=== PATIENT | male | born 1965 | race American Indian/Alaskan Native ===

== ENCOUNTER 2017-04-22 11:56 | Inpatient (IN) | payer OTHER ==
[2017-04-22 14:15] LABS: Bilirubin,Urine NEG (Negative); Blood,Urine SM (Negative); Color,Urine Yellow (Yellow); Mucus,Urine FEW /HPF; Nitrite,Urine NEG (Negative); Urobilinogen,Urine < 2.0 mg/dL (<2.0)
[2017-04-22] MEDS ORDERED: NACL 0.9% 1000 ML 1,000 ML IV ONE (15:31)
[2017-04-22] MEDS ORDERED: TORADOL IV ONE (15:31)
[2017-04-22] MEDS ORDERED: ZOFRAN IV ONE (15:31)
--- NOTE | 2017-04-22 15:31 | Emergency Department Report ---
Blank Doc - Documentation Documentation: Patient is a 52-year-old F Cam[place] male whose presenting with abdominal discomfort. Patient states that for the past week he has not had a bowel movement he has had several episodes of nausea and vomiting when he drinks fluids he feels bloated. Patient states he is not passing flatus. Patient had a 50 pound weight loss over the past 2 months and also has not ate or drank in several days. Patient is feeling weak and fatigued. Patient is deemed ill enough potentially that he needs to be moved to the main acute side of the ER for further workup. We will start a workup by placing an IV on the patient will also be doing laboratory studies as well
[2017-04-22 16:24] LABS: Basophils # (Auto) 0.1 K/mm3 (0.0-0.1); Basophils % (Auto) 0.6 % (0.0-1.8); Eosinophils # (Auto) 0.1 K/mm3 (0.0-0.4); Eosinophils % (Auto) 0.6 % (0.0-4.3); Hematocrit 38.4 % (35.5-45.6); Hemoglobin 13.1 gm/dl (11.8-15.2); Lymphocytes # (Auto) 1.6 K/mm3 (1.2-5.4); Lymphocytes % (Auto) 16.8 % (13.4-35.0); Mean Corpuscular HGB Conc 34 % (32-34); Mean Corpuscular Hemoglobin 32 pg (28-32); Mean Corpuscular Volume 94 fl (84-94); Monocytes # (Auto) 0.9 K/mm3 (0.0-0.8); Platelet Count 368 K/mm3 (140-440); Red Cell Distribution Width 12.9 % (13.2-15.2)
[2017-04-22 16:32] LABS: BUN/Creatinine Ratio 13; Blood Urea Nitrogen 16 mg/dL (9-20); Calcium 9.5 mg/dL (8.4-10.2); Hemolysis Index 2; Lipase 10 units/L (13-60)
--- NOTE | 2017-04-22 17:11 | Emergency Department Report ---
ED General Adult HPI - General Chief complaint: Abdominal Pain Stated complaint: NAUSEA Time Seen by Provider: 04/22/17 15:16 Source: patient Mode of arrival: Ambulatory Limitations: No Limitations - History of Present Illness Initial comments: Patient is a 52-year-old male past medical history umbilical hernia who presents with abdominal pain meds been going on for the last couple days. Patient states the bone pains a 6 out of 10 is an achy type pain nothing makes it better or worse. Patient also has some nausea with this abdominal pain. He states that he's lost 50 pounds in the last month it is been hard for him to take solids and liquids. Pt has not been able to pass flatus. Severity scale (0 -10): 6 - Related Data Previous Rx's Medication Instructions Recorded Last Taken Type Dicyclomine [Bentyl] 20 mg PO QID #20 tablet 04/22/17 Unknown Rx Promethazine [Phenergan TAB] 25 mg PO Q6HR PRN #15 tab 04/22/17 Unknown Rx traMADol [Ultram 50 MG tab] 50 mg PO Q6HR PRN #12 tablet 04/22/17 Unknown Rx Allergies Allergy/AdvReac Type Severity Reaction Status Date / Time No Known Allergies Allergy Verified 04/22/17 12:39 ED Review of Systems ROS: Stated complaint: NAUSEA Other details as noted in HPI Constitutional: weakness. denies: chills, fever Eyes: denies: eye pain, eye discharge, vision change ENT: denies: ear pain, throat pain Respiratory: denies: cough, shortness of breath, wheezing Cardiovascular: denies: chest pain, palpitations Endocrine: no symptoms reported Gastrointestinal: abdominal pain, nausea. denies: diarrhea Genitourinary: denies: urgency, dysuria Musculoskeletal: denies: back pain, joint swelling, arthralgia Skin: denies: rash, lesions Neurological: denies: headache, weakness, paresthesias Psychiatric: denies: anxiety, depression Hematological/Lymphatic: denies: easy bleeding, easy bruising ED Past Medical Hx - Past Medical History Previous Medical History?: Yes Additional medical history: irritable bowel - Surgical History Past Surgical History?: No - Social History Smoking Status: Current Every Day Smoker Substance Use Type: None - Medications Home Medications: Home Medications Medication Instructions Recorded Confirmed Last Taken Type Dicyclomine [Bentyl] 20 mg PO QID #20 tablet 04/22/17 Unknown Rx Promethazine [Phenergan TAB] 25 mg PO Q6HR PRN #15 tab 04/22/17 Unknown Rx traMADol [Ultram 50 MG tab] 50 mg PO Q6HR PRN #12 tablet 04/22/17 Unknown Rx ED Physical Exam - General Limitations: No Limitations General appearance: alert, in no apparent distress - Head Head exam: Present: atraumatic, normocephalic - Eye Eye exam: Present: normal appearance - ENT ENT exam: Present: mucous membranes moist - Neck Neck exam: Present: normal inspection - Respiratory Respiratory exam: Present: normal lung sounds bilaterally. Absent: respiratory distress - Cardiovascular Cardiovascular Exam: Present: regular rate, normal rhythm. Absent: systolic murmur, diastolic murmur, rubs, gallop - GI/Abdominal GI/Abdominal exam: Present: soft, diminished bowel sounds, other (umbilical hernia ) - Rectal Rectal exam: Present: deferred - Extremities Exam Extremities exam: Present: normal inspection - Back Exam Back exam: Present: normal inspection - Neurological Exam Neurological exam: Present: alert, oriented X3 - Psychiatric Psychiatric exam: Present: normal affect, normal mood - Skin Skin exam: Present: warm, dry, intact, normal color. Absent: rash ED Course Vital Signs 04/22/17 04/22/17 12:40 16:00 Temperature 98.2 F Pulse Rate 90 Respiratory 16 18 Rate Blood Pressure 160/102 O2 Sat by Pulse 100 Oximetry ED Medical Decision Making - Lab Data Result diagrams: 04/22/17 15:51 04/22/17 15:51 Lab Results 04/22/17 04/22/17 04/22/17 Range/Units 13:36 15:51 15:51 WBC 9.6 (4.5-11.0) K/mm3 RBC 4.10 (3.65-5.03) M/mm3 Hgb 13.1 (11.8-15.2) gm/dl Hct 38.4 (35.5-45.6) % MCV 94 (84-94) fl MCH 32 (28-32) pg MCHC 34 (32-34) % RDW 12.9 L (13.2-15.2) % Plt Count 368 (140-440) K/mm3 Lymph % (Auto) 16.8 (13.4-35.0) % [place] % (Auto) 9.0 H (0.0-7.3) % Eos % (Auto) 0.6 (0.0-4.3) % Baso % (Auto) 0.6 (0.0-1.8) % Lymph # 1.6 (1.2-5.4) K/mm3 [place] # 0.9 H (0.0-0.8) K/mm3 Eos # 0.1 (0.0-0.4) K/mm3 Baso # 0.1 (0.0-0.1) K/mm3 Seg Neutrophils % 73.0 H (40.0-70.0) % Seg Neutrophils # 7.0 (1.8-7.7) K/mm3 Sodium 138 (137-145) mmol/L Potassium 4.7 (3.6-5.0) mmol/L Chloride 93.8 L (98-107) mmol/L Carbon Dioxide 31 H (22-30) mmol/L Anion Gap 18 mmol/L BUN 16 (9-20) mg/dL Creatinine 1.2 (0.8-1.5) mg/dL Estimated GFR > 60 ml/min BUN/Creatinine Ratio 13 % Glucose 110 H (75-100) mg/dL Calcium 9.5 (8.4-10.2) mg/dL Amylase 52 (27-131) units/L Lipase 10 L (13-60) units/L Urine Color Yellow (Yellow) Urine Turbidity Clear (Clear) Urine pH 5.0 (5.0-7.0) Ur Specific [place] 1.027 (1.003-1.030) Urine Protein 100 mg/dl (Negative) mg/dL Urine Glucose (UA) Neg (Negative) mg/dL Urine Ketones 20 (Negative) mg/dL Urine Blood Sm (Negative) Urine Nitrite Neg (Negative) Urine Bilirubin Neg (Negative) Urine Urobilinogen < 2.0 (<2.0) mg/dL Ur Leukocyte Esterase Neg (Negative) Urine WBC (Auto) 2.0 (0.0-6.0) /HPF Urine RBC (Auto) 5.0 (0.0-6.0) /HPF Urine Mucus Few /HPF - Radiology Data Radiology results: pending - Medical Decision Making Cdx: Abdominal hernia ddx: Peritonitis, anemia, cancer I will get cbc, ct scan, cmp, inr. ptt, iv pain medication and IV fluids. Critical care attestation.: If time is entered above; I have spent that time in minutes in the direct care of this critically ill patient, excluding procedure time. ED Disposition Clinical Impression: Abdominal pain Qualifiers: Abdominal location: generalized Qualified Code(s): R10.84 - Generalized abdominal pain Nausea and vomiting Qualifiers: Vomiting type: unspecified Vomiting Intractability: non-intractable Qualified Code(s): R11.2 - Nausea with vomiting, unspecified Is pt being admited?: No Does the pt Need Aspirin: No Condition: Stable Prescriptions: Dicyclomine [Bentyl] 20 mg PO QID #20 tablet Promethazine [Phenergan TAB] 25 mg PO Q6HR PRN #15 tab PRN Reason: Nausea traMADol [Ultram 50 MG tab] 50 mg PO Q6HR PRN #12 tablet PRN Reason: Pain Referrals: PRIMARY CARE,MD [Primary Care Provider] - 3-5 Days
--- NOTE | 2017-04-22 21:40 | Cat Scan Report ---
FINAL REPORT PROCEDURE: CT ABDOMEN PELVIS W CON TECHNIQUE: Computerized axial tomography of the abdomen and pelvis was performed after the IV injection of iodinated nonionic contrast. HISTORY: Abdominal Pain COMPARISON: No prior studies are available for comparison. FINDINGS: Visualized lower thorax: No significant abnormality. Liver: Normal size and attenuation. There is an 8 millimeter low-density lesion in the right lobe of the liver which could be a cyst. Metastatic lesion not excluded. Spleen: There is a 13 millimeter hypodense lesion in the spleen which could be a cyst. Metastatic lesion not excluded.. Gallbladder and biliary system: Normal. Pancreas: Normal. Adrenals: Normal. Kidneys: Left kidney is unremarkable. There is severe hydronephrosis of the right kidney. There are no stones. Distal ureteral obstruction or stricture not excluded.. GI tract: There is thickening of the stomach antrum which could be due to gastritis. Mass not excluded. There is no bowel obstruction. There is thickening of the rectum and sigmoid and left colon which could be due to inflammation. Underlying mass not excluded.. Lymph nodes and mesentery: There are omental masses suspicious for metastatic implants.. Vasculature: Normal. Bladder: Normal. Reproductive organs: Normal. Peritoneum: There is a large amount of ascites. There is ill-defined mass in the pelvis measuring 8.5 x 10.5 centimeter is suspicious for metastatic implant.. Musculoskeletal structures: No significant abnormality. Other: None. IMPRESSION: Findings are highly suspicious for peritoneal carcinomatosis. Possible source of malignancy could be gastrointestinal. There is a large amount of ascites. There is no mechanical bowel obstruction. Liver and spleen lesions could also be metastatic in nature. There hydronephrosis of the right kidney. This could be due to distal ureteral stricture caused by extrinsic compression from pelvic mass.
--- NOTE | 2017-04-22 22:01 | Emergency Department Report ---
Blank Doc - Documentation Documentation: I was asked to follow up on the CT scan abdomen and pelvis by Dr. Saini. CT abdomen and pelvis reveals findings are highly suspicious for peritoneal carcinomatosis. This was discussed with the patient and family. Will admit the patient to the hospital FINAL REPORT PROCEDURE: CT ABDOMEN PELVIS W CON TECHNIQUE: Computerized axial tomography of the abdomen and pelvis was performed after the IV injection of iodinated nonionic contrast. HISTORY: Abdominal Pain COMPARISON: No prior studies are available for comparison. FINDINGS: Visualized lower thorax: No significant abnormality. Liver: Normal size and attenuation. There is an 8 millimeter low-density lesion in the right lobe of the liver which could be a cyst. Metastatic lesion not excluded. Spleen: There is a 13 millimeter hypodense lesion in the spleen which could be a cyst. Metastatic lesion not excluded.. Gallbladder and biliary system: Normal. Pancreas: Normal. Adrenals: Normal. Kidneys: Left kidney is unremarkable. There is severe hydronephrosis of the right kidney. There are no stones. Distal ureteral obstruction or stricture not excluded.. GI tract: There is thickening of the stomach antrum which could be due to gastritis. Mass not excluded. There is no bowel obstruction. There is thickening of the rectum and sigmoid and left colon which could be due to inflammation. Underlying mass not excluded.. Lymph nodes and mesentery: There are omental masses suspicious for metastatic implants.. Vasculature: Normal. Bladder: Normal. Reproductive organs: Normal. Peritoneum: There is a large amount of ascites. There is ill-defined mass in the pelvis measuring 8.5 x 10.5 centimeter is suspicious for metastatic implant.. Musculoskeletal structures: No significant abnormality. Other: None. IMPRESSION: Findings are highly suspicious for peritoneal carcinomatosis. Possible source of malignancy could be gastrointestinal. There is a large amount of ascites. There is no mechanical bowel obstruction. Liver and spleen lesions could also be metastatic in nature. There hydronephrosis of the right kidney. This could be due to distal ureteral stricture caused by extrinsic compression from pelvic mass. Transcribed By: CO Dictated By: MADISON HARP MD Electronically Authenticated By: MADISON HARP MD Signed Date/Time: 04/22/171735 DD/ 35 TD/TT: 04/22/171735 Hospitalist paged @ 22:00 (Dr. Frazier)
--- NOTE | 2017-04-23 01:31 | History and Physical Report ---
History of Present Illness Date of examination: 04/23/17 Date of admission: 04/22/17 22:03 Chief complaint: Abdominal pain History of present illness: 52-year-old -Malaysian male with no significant past medical history presented to the emergency department complaining of lower abdominal pain of one month duration. Pain is constant, dull, 7 out of 10 in intensity, with no radiation. Patient is also complaining of abdominal distention getting worse after eating and drinking. Patient is complaining of nausea and vomiting for the last 1 week. He is also complaining of acid reflex. Occasional diarrhea, no blood in it. Patient said she lost 55 pounds in 2 months. Denied fever, chills. Patient didn't see a doctor in many years. REVIEW OF SYSTEMS: GENERAL: no weight change, no fatigue, no fever HEAD: no head ache EYES: no blurry vision, no acute visual loss EARS: no hearing loss, no discharge, no earache NOSE: no stuffiness, no sneezing, no discharge MOUTH, THROAT AND NECK: no bleeding gums, no sore throat, no swollen neck CARDIAC: no palpitations, no dyspnea on exertion, no orthopnea, no PND, no edema , no chest pain RESPIRATORY: no shortness of breath, no wheeze, no cough, no sputum, no hemoptysis, no asthma GI: As stated in the HPI URINARY: no change in frequency, no urgency, no polyuria, no hematuria, no incontinence MUSCULOSKELETAL: no muscle weakness, no pain, no joint stiffness NEUROLOGIC: no loss of sensation/numbness, no tingling, no tremors, no weakness/ paralysis HEMATOLOGIC: no anemia, no easy bruising SKIN: no rashes ENDOCRINE: no heat/cold intolerance, no polyuria, no polydipsia, no thyroid problems, no diabetes PSYCHIATRIC: no anxiety, no depression, no suicidal ideations Past History Past Medical History: No medical history Past Surgical History: No surgical history Social history: smoking (smokes a pack of cigarettes over 2-3 days), full code. denies: alcohol abuse, prescription drug abuse, IV drug use Family history: no significant family history Medications and Allergies Allergies Allergy/AdvReac Type Severity Reaction Status Date / Time No Known Allergies Allergy Verified 04/22/17 12:39 Home Medications Medication Instructions Recorded Confirmed Last Taken Type Dicyclomine [Bentyl] 20 mg PO QID #20 tablet 04/22/17 Unknown Rx Promethazine [Phenergan TAB] 25 mg PO Q6HR PRN #15 tab 04/22/17 Unknown Rx traMADol [Ultram 50 MG tab] 50 mg PO Q6HR PRN #12 tablet 04/22/17 Unknown Rx Active Meds: Active Medications Influenza Virus Vaccine Quadrival (Fluarix Quad [id number](36 Mos+) 0.5 ml IM .ONCE ONE Stop: 04/23/17 12:01 Exam - Physical Exam Narrative exam: Not in cardiopulmonary distress. The patient appeared well nourished and normally developed. Vital signs as documented. Head exam is unremarkable. No scleral icterus . Neck is without jugular venous distension, thyromegaly, or carotid bruits. Lungs are clear to auscultation. Cardiac exam reveals regular rate and Rhythm. First and second heart sounds normal. No murmurs, rubs or gallops. Abdominal exam reveals distended abdomen, no guarding or rigidity. Extremities are nonedematous and both femoral and pedal pulses are normal. SKATESMAN: Alert and oriented 3. No focal weakness. - Constitutional Vitals: Temp Pulse Resp BP Pulse Ox 98.9 F 72 16 157/97 98 04/23/17 00:17 04/23/17 00:17 04/23/17 00:17 04/23/17 00:17 04/23/17 00:17 Results - Labs CBC & Chem 7: 04/22/17 15:51 04/22/17 15:51 Labs: Laboratory Last Values WBC 9.6 K/mm3 (4.5-11.0) 04/22/17 15:51 RBC 4.10 M/mm3 (3.65-5.03) 04/22/17 15:51 Hgb 13.1 gm/dl (11.8-15.2) 04/22/17 15:51 Hct 38.4 % (35.5-45.6) 04/22/17 15:51 MCV 94 fl (84-94) 04/22/17 15:51 MCH 32 pg (28-32) 04/22/17 15:51 MCHC 34 % (32-34) 04/22/17 15:51 RDW 12.9 % (13.2-15.2) L 04/22/17 15:51 Plt Count 368 K/mm3 (140-440) 04/22/17 15:51 Lymph % (Auto) 16.8 % (13.4-35.0) 04/22/17 15:51 [place] % (Auto) 9.0 % (0.0-7.3) H 04/22/17 15:51 Eos % (Auto) 0.6 % (0.0-4.3) 04/22/17 15:51 Baso % (Auto) 0.6 % (0.0-1.8) 04/22/17 15:51 Lymph # 1.6 K/mm3 (1.2-5.4) 04/22/17 15:51 [place] # 0.9 K/mm3 (0.0-0.8) H 04/22/17 15:51 Eos # 0.1 K/mm3 (0.0-0.4) 04/22/17 15:51 Baso # 0.1 K/mm3 (0.0-0.1) 04/22/17 15:51 Seg Neutrophils % 73.0 % (40.0-70.0) H 04/22/17 15:51 Seg Neutrophils # 7.0 K/mm3 (1.8-7.7) 04/22/17 15:51 Sodium 138 mmol/L (137-145) 04/22/17 15:51 Potassium 4.7 mmol/L (3.6-5.0) 04/22/17 15:51 Chloride 93.8 mmol/L (98-107) L 04/22/17 15:51 Carbon Dioxide 31 mmol/L (22-30) H 04/22/17 15:51 Anion Gap 18 mmol/L 04/22/17 15:51 BUN 16 mg/dL (9-20) 04/22/17 15:51 Creatinine 1.2 mg/dL (0.8-1.5) 04/22/17 15:51 Estimated GFR > 60 ml/min 04/22/17 15:51 BUN/Creatinine Ratio 13 % 04/22/17 15:51 Glucose 110 mg/dL (75-100) H 04/22/17 15:51 Calcium 9.5 mg/dL (8.4-10.2) 04/22/17 15:51 Amylase 52 units/L (27-131) 04/22/17 15:51 Lipase 10 units/L (13-60) L 04/22/17 15:51 Urine Color Yellow (Yellow) 04/22/17 13:36 Urine Turbidity Clear (Clear) 04/22/17 13:36 Urine pH 5.0 (5.0-7.0) 04/22/17 13:36 Ur Specific [place] 1.027 (1.003-1.030) 04/22/17 13:36 Urine Protein 100 mg/dl mg/dL (Negative) 04/22/17 13:36 Urine Glucose (UA) Neg mg/dL (Negative) 04/22/17 13:36 Urine Ketones 20 mg/dL (Negative) 04/22/17 13:36 Urine Blood Sm (Negative) 04/22/17 13:36 Urine Nitrite Neg (Negative) 04/22/17 13:36 Urine Bilirubin Neg (Negative) 04/22/17 13:36 Urine Urobilinogen < 2.0 mg/dL (<2.0) 04/22/17 13:36 Ur Leukocyte Esterase Neg (Negative) 04/22/17 13:36 Urine WBC (Auto) 2.0 /HPF (0.0-6.0) 04/22/17 13:36 Urine RBC (Auto) 5.0 /HPF (0.0-6.0) 04/22/17 13:36 Urine Mucus Few /HPF 04/22/17 13:36 - Imaging and Cardiology CT scan - abdomen: report reviewed Assessment and Plan Assessment and plan: GI malignancy Peritoneal carcinomatosis GERD Nausea and vomiting - GI consulted - oncology consult - IV fluids, IV pantoprazole, IV Zofran DVT prophylaxis Heparin Disposition - Admit to medical floor for further workup and management Advance Directives: Yes VTE prophylaxis?: Chemical Plan of care discussed with patient/family: Yes
[2017-04-23] MEDS: NACL 0.9% 1000 ML 1,000 ML IV SCH ×2 (03:47→16:31)
[2017-04-23] MEDS: PROTONIX IV SCH ×3 (03:47→21:10)
--- NOTE | 2017-04-23 08:25 | Event Note ---
Date: 04/23/17
[2017-04-23] MEDS: NORVASC PO SCH (10:06)
[2017-04-23 11:30] LABS: INR 1.01 (0.87-1.13)
[2017-04-23] MEDS ORDERED: Fluarix Quad 2017-2018(36 MOS+ IM ONE (12:00)
--- NOTE | 2017-04-23 12:50 | Consultation ---
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 Patient has a 5 month history of constipation. He has an approximately 2 month history of intermittent left sided pain as well as loss of appetite and early bloating. He has had poor by mouth intake over the last 2 months. He has lost 55 pounds over the last 2 months. He has also recently noticed heartburn with vomiting. He is a smoker and was smoking up half pack per day until approximately a week ago. He denies fevers chills sweats or shortness of breath. There's been no rectal bleeding. He does note a change in his bowel movements with some degree of constipation. He denies dysphagia. He does have early satiety. Patient's and parents are in the room. There is no family history of malignancy. Past History Past Medical History: No medical history Past Surgical History: No surgical history Social history: smoking (smokes a pack of cigarettes over 2-3 days), full code. denies: alcohol abuse, prescription drug abuse, IV drug use Family history: no significant family history Medications and Allergies Allergies Allergy/AdvReac Type Severity Reaction Status Date / Time No Known Allergies Allergy Verified 04/22/17 12:39 Home Medications Medication Instructions Recorded Confirmed Last Taken Type Dicyclomine [Bentyl] 20 mg PO QID #20 tablet 04/22/17 Unknown Rx Promethazine [Phenergan TAB] 25 mg PO Q6HR PRN #15 tab 04/22/17 Unknown Rx traMADol [Ultram 50 MG tab] 50 mg PO Q6HR PRN #12 tablet 04/22/17 Unknown Rx Active Meds: Active Medications Amlodipine Besylate (Norvasc) 5 mg PO QDAY [facility] Last Admin: 04/23/17 10:06 Dose: 5 mg Enoxaparin Sodium (Lovenox) 40 mg SUB-Q QDAY@2200 SHAYE Sodium Chloride (Nacl 0.9% 1000 Ml) 1,000 mls @ 75 mls/hr IV DIRECT SHAYE Last Admin: 04/23/17 03:47 Dose: 75 mls/hr Ondansetron HCl (Zofran) 4 mg IV Q8H PRN PRN Reason: N/V unrelieved by Reglan Pantoprazole Sodium (Protonix) 40 mg IV BID SHAYE Last Admin: 04/23/17 10:07 Dose: 40 mg Review of Systems All systems: negative Constitutional: other (as noted in HPI as noted in HPI) Exam - Constitutional Vitals: Temp Pulse Resp BP Pulse Ox 98.4 F 73 18 135/91 96 04/23/17 08:42 04/23/17 08:42 04/23/17 08:42 04/23/17 08:42 04/23/17 08:42 General appearance: Present: no acute distress - EENT Eyes: Present: PERRL, EOM intact ENT: hearing intact - Neck Neck: Present: supple, other (No adenopathy) - Respiratory Respiratory effort: normal - Cardiovascular Rhythm: regular Heart Sounds: Present: S1 & S2 - Abdominal General gastrointestinal: Present: soft, non-tender, normal bowel sounds, other (No masses palpable.) Results - Labs CBC & Chem 7: 04/22/17 15:51 04/22/17 15:51 Labs: Abnormal lab results 04/22/17 04/22/17 Range/Units 15:51 15:51 RDW 12.9 L (13.2-15.2) % [place] % (Auto) 9.0 H (0.0-7.3) % [place] # 0.9 H (0.0-0.8) K/mm3 Seg Neutrophils % 73.0 H (40.0-70.0) % Chloride 93.8 L (98-107) mmol/L Carbon Dioxide 31 H (22-30) mmol/L Glucose 110 H (75-100) mg/dL Lipase 10 L (13-60) units/L - Imaging and Cardiology CT scan - abdomen: report reviewed, other (Ascites, peritoneal carcinomatosis) Assessment and Plan #1. Peritoneal carcinomatosis/ascites Patient has findings consistent with malignant ascites. Etiology is unclear, but pancreatic or gastric etiologies are fairly common. He has GI symptoms with constipation that could be related to obstruction from peritoneal carcinomatosis or tomorrow primary process. He also has early satiety. CT also shows right hydro-ureter consistent with obstruction from the peritoneal carcinomatosis. We will check CEA, CA 199 level. We will proceed with an upper endoscopy to assess the thickened antral wall especially given his history of early satiety. I agree with the plans for paracentesis and cytology today. Also agree with plans for oncologic evaluation. I would defer colonoscopy for now until some of the other studies are available. Plans were discussed with patient and his family.
--- NOTE | 2017-04-23 15:20 | Ultrasound Report ---
Ultrasound guided paracentesis: Ascites. Imaging of the abdomen demonstrated a site of entrance in the right lower quadrant. The skin was marked, cleansed, and draped. 1% lidocaine used local anesthesia. Through a small skin neck a 5 Divehi UE catheter was successfully placed into the fluid collection. 120 cc of straw-colored fluid was removed for lab evaluation. A total of 1.5 L was removed. No complication.
--- NOTE | 2017-04-23 15:28 | Procedure Note ---
Date of procedure: 04/23/17 Pre-op diagnosis: ascites Post-op diagnosis: same Procedure: paracentesis Findings: straw colored fluid Anesthesia: local Surgeon: AGNIESZKA DUNN Estimated blood loss: none Pathology: list (120cc ascites) Specimen disposition: to lab Condition: stable Disposition: floor
--- NOTE | 2017-04-23 19:11 | Progress Note ---
Assessment and Plan - Carcinomatosis abdominis with ascites Paracentesis done today. Specimen sent for cytology. Follow-up with the results. - Peritoneal carcinomatosis GI consulted. CEA and CA-19-9 ordered Oncology consulted - Right ureteric obstruction from intra-abdominal malignancy Normal BUN, Creatinine. Urology consult - GERD PPI - Nausea and vomiting on antiemetic - Constipation Secondary to intraabdominal carcinomatosis commence on Mag citrate DVT prophylaxis Heparin Subjective Date of service: 04/23/17 Principal diagnosis: abdominal pain, ascites from mets Interval history: Has abdominal pain with constipation Objective - Exam Narrative Exam: Constitutional: Well-nourished well-developed. In no distress Head: Normocephalic atraumatic Eyes: Pupils are equal round and reactive to light Nose: No enlarged turbinates, no septal deviation. Mouth: Moist mucous membranes. Neck: Supple no thyromegaly. No bruit. No JVD Heart: Regular rate and rhythm, S1-S2 abnormal. No rubs murmurs or gallop Lungs: Clear to auscultation bilaterally no rales or rhonchi Abdomen: Soft, ascites. Bowel sound are present. Extremities: No edema no cyanosis and no clubbing. Neuro: Alert oriented Oriented x3. No focal sensory or motor deficit. Skin: No rashes no hyperemic spots Psychiatry: Euthymic. Calm. - Constitutional Vitals: Vital Signs - 12hr 04/23/17 04/23/17 08:42 16:47 Temperature 98.4 F 99.1 F Pulse Rate 73 85 Respiratory 18 18 Rate Blood Pressure 135/91 139/86 O2 Sat by Pulse 96 97 Oximetry - Labs CBC & Chem 7: 04/22/17 15:51 04/22/17 15:51
[2017-04-23] MEDS: DILAUDID IM PRN (20:52)
[2017-04-23] MEDS: ZOFRAN IV PRN (20:52)
[2017-04-23] MEDS: LOVENOX SUB-Q SCH (21:10)
[2017-04-24] MEDS: DILAUDID IM PRN ×3 (02:30→22:52)
[2017-04-24] MEDS: NACL 0.9% 1000 ML 1,000 ML IV SCH ×3 (04:49→20:47)
[2017-04-24 05:44] LABS: Basophils % (Auto) 0.2 % (0.0-1.8); Eosinophils # (Auto) 0.2 K/mm3 (0.0-0.4); Eosinophils % (Auto) 3.1 % (0.0-4.3); Hemoglobin 11.4 gm/dl (11.8-15.2); Lymphocytes % (Auto) 28.9 % (13.4-35.0); Mean Corpuscular HGB Conc 34 % (32-34); Mean Corpuscular Hemoglobin 31 pg (28-32); Mean Corpuscular Volume 93 fl (84-94); Monocytes # (Auto) 0.8 K/mm3 (0.0-0.8); Monocytes % (Auto) 11.3 % (0.0-7.3); Platelet Count 338 K/mm3 (140-440); Red Blood Count 3.64 M/mm3 (3.65-5.03); Red Cell Distribution Width 12.8 % (13.2-15.2)
[2017-04-24 06:12] LABS: Alanine Aminotransferase 10 units/L (7-56); Albumin 2.7 g/dL (3.9-5); BUN/Creatinine Ratio 10; Blood Urea Nitrogen 14 mg/dL (9-20); Calcium 8.5 mg/dL (8.4-10.2); Hemolysis Index 3
[2017-04-24] MEDS ORDERED: NACL 0.9% 1000 ML 1,000 ML ONE (08:01)
--- NOTE | 2017-04-24 08:30 | Anesthesia Consultation ---
Anesthesia Consult and Med Hx Date of service: 04/24/17 - Airway Anesthetic Teeth Evaluation: Good ROM Head & Neck: Adequate Mental/Hyoid Distance: Adequate Mallampati Class: Class I Intubation Access Assessment: Good - Pulmonary Exam CTA: Yes - Cardiac Exam Cardiac Exam: RRR - Pre-Operative Health Status ASA Pre-Surgery Classification: ASA2 Proposed Anesthetic Plan: MAC - Pulmonary Hx Smoking: Yes Hx Asthma: No COPD: No Hx Pneumonia: No - Cardiovascular System Hx Hypertension: Yes (just dx in hospital) - Endocrine Hx End Stage Renal Disease: No
--- NOTE | 2017-04-24 08:30 | Anesthesia Day of Surgery ---
Anesthesia Day of Surgery - Day of Surgery Patient Examined: Yes Patient H&P Reviewed: Yes Patient is NPO: Yes
[2017-04-24] MEDS ORDERED: DIPRIVAN 10 MG/ML IV ONE ×2 (08:44)
[2017-04-24] MEDS ORDERED: WATER FOR IRRIG STERILE IR ONE (08:58)
--- NOTE | 2017-04-24 09:52 | Post Operative Note ---
Pre-op diagnosis: Abnormal CT Post-op diagnosis: other (gastritis, esophagitis, gastroparesis) Findings: 1. Moderate amount of food in the stomach consistent with gastroparesis (from tumor, presumably); no pyloric obstruction 2. Normal duodenum 3. Moderate erythema and edema in the gastric cardia; no mass seen, but cold biopsies taken 4. LA B erosive esophagitis, likely from gastroparesis/vomiting Procedure: EGD with cold biopsy Anesthesia: MAC Surgeon: GARRY VITALE Estimated blood loss: minimal Pathology: list (1. Gastric cardia) Condition: stable Disposition: floor (Recs: 1. Full liquid diet, advance as tolerated. 2. F/U pathology. 3. Will await biopsy results of stomach and peritoneal fluid; needs a PET scan as well. 4. Patient would be unable to take a prep at present due to gastroparesis, but if PET localizes to colon, then may need lower endoscopy. 5. Protonix daily therapy.)
--- NOTE | 2017-04-24 10:06 | Operative Report ---
PROCEDURE PERFORMED: Esophagogastroduodenoscopy with cold biopsy. PREOPERATIVE DIAGNOSES: Abnormal CT scan, with presumed metastatic cancer of unknown origin. POSTOPERATIVE DIAGNOSES: Gastritis, esophagitis and gastroparesis. ENDOSCOPIST: Jason Escobedo M.D. INSTRUMENT: [employer] video endoscope. MEDICATIONS: MAC anesthesia by Anesthesia Services. COMPLICATIONS: No apparent complications. ESTIMATED BLOOD LOSS: Minimal. SPECIMENS: Gastric cardia. IMPLANTS: None. ASSISTANTS: None. CONDITION AT COMPLETION: Stable. TECHNIQUE: The patient was informed of the risks and benefits of the procedure. He signed the informed consent to proceed. He was placed in the left lateral decubitus position. The above sedative medications were given. His vital signs remained stable throughout the procedure. The instrument was advanced from the mouth to the second portion of the duodenum under direct visualization. At that point, the bowel was insufflated and the endoscope was slowly withdrawn. FINDINGS: 1. There was a moderate amount of food in the stomach consistent with gastroparesis, presumably from his underlying peritoneal metastatic tumor; no evidence was seen of obstruction at the pylorus. 2. Normal duodenum. 3. Moderate erythema and edema in the gastric cardia; no mass was seen, but cold biopsies were taken. 4. LA grade B erosive esophagitis, likely from his gastroparesis and chronic vomiting. RECOMMENDATIONS: 1. Full liquid diet and advance as tolerated. 2. Follow up on pathology. 3. We will await biopsy results of the stomach and the peritoneal fluid; the patient needs PET scan as well. 4. The patient will be unable to take a preparation for colonoscopy due to his gastroparesis, but if the PET scan localizes to the colon, then he may need a lower endoscopy. 5. Protonix daily therapy. JOB# [id number] GAYLA/LAURA
--- NOTE | 2017-04-24 12:55 | Post Anesthesia Evaluation ---
- Post Anesthesia Evaluation Patient Participated: Yes Airway Patent: Yes Stable Respiratory Function: Yes Nausea/Vomiting: No Temp > 96.8F: Yes Pain Manageable: Yes Adequeate Hydration: Yes Anesthesia Complications: No
[2017-04-24] MEDS: NORVASC PO SCH (13:01)
[2017-04-24] MEDS: PROTONIX PO SCH (13:01)
[2017-04-24] MEDS: ZOFRAN IV PRN ×2 (13:01→22:52)
--- NOTE | 2017-04-24 13:26 | Hem/Onc Consultation ---
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 Patient has a 5 month history of constipation. He has an approximately 2 month history of intermittent left sided pain as well as loss of appetite and early bloating. He has had poor by mouth intake over the last 2 months. He has lost 55 pounds over the last 2 months. He has also recently noticed heartburn with vomiting. He is a smoker and was smoking up half pack per day until approximately a week ago. He denies fevers chills sweats or shortness of breath. There's been no rectal bleeding. He does note a change in his bowel movements with some degree of constipation. He denies dysphagia. He does have early satiety. He shouldn't underwent paracentesis yesterday Past History Past Medical History: No medical history Past Surgical History: No surgical history Social history: smoking (smokes a pack of cigarettes over 2-3 days), full code. denies: alcohol abuse, prescription drug abuse, IV drug use Family history: no significant family history Medications and Allergies Allergies Allergy/AdvReac Type Severity Reaction Status Date / Time No Known Allergies Allergy Verified 04/22/17 12:39 Home Medications Medication Instructions Recorded Confirmed Last Taken Type Dicyclomine [Bentyl] 20 mg PO QID #20 tablet 04/22/17 Unknown Rx Promethazine [Phenergan TAB] 25 mg PO Q6HR PRN #15 tab 04/22/17 Unknown Rx traMADol [Ultram 50 MG tab] 50 mg PO Q6HR PRN #12 tablet 04/22/17 Unknown Rx Active Meds: Active Medications Amlodipine Besylate (Norvasc) 5 mg PO QDAY [facility] Last Admin: 04/24/17 13:01 Dose: 5 mg Enoxaparin Sodium (Lovenox) 40 mg SUB-Q QDAY@2200 [facility] Last Admin: 04/23/17 21:10 Dose: 40 mg Hydromorphone HCl (Dilaudid) 1 mg IM Q3H PRN PRN Reason: Pain , Severe (7-10) Last Admin: 04/24/17 11:31 Dose: 1 mg Sodium Chloride (Nacl 0.9% 1000 Ml) 1,000 mls @ 75 mls/hr IV DIRECT [facility] Last Admin: 04/24/17 08:48 Dose: 75 mls/hr Ondansetron HCl (Zofran) 4 mg IV Q8H PRN PRN Reason: N/V unrelieved by Alia Last Admin: 04/24/17 13:01 Dose: 4 mg Pantoprazole Sodium (Protonix) 40 mg PO QDAY [facility] Last Admin: 04/24/17 13:01 Dose: 40 mg Exam - Constitutional Vitals: Last Vital Signs Temp 98.0 F 04/24/17 09:47 Pulse 72 04/24/17 10:02 Resp 12 04/24/17 10:02 BP 122/87 04/24/17 10:02 Pulse Ox 99 04/24/17 10:02 General appearance: no acute distress Performance status: 2- selfcare, ambulatory - Neck Neck: supple - Respiratory Respiratory effort: Positive: normal Respiratory: bilateral: CTA - Cardiovascular Rhythm: regular Extremities: No edema - Gastrointestinal General gastrointestinal: Present: soft (tenderness mostly in the left side of the abdomen) Results - Labs lab Results: Laboratory Results - last 24 hr 04/24/17 04/24/17 04:54 04:54 WBC 6.8 RBC 3.64 L Hgb 11.4 L Hct 34.0 L MCV 93 MCH 31 MCHC 34 RDW 12.8 L Plt Count 338 Lymph % (Auto) 28.9 [place] % (Auto) 11.3 H Eos % (Auto) 3.1 Baso % (Auto) 0.2 Lymph # 2.0 [place] # 0.8 Eos # 0.2 Baso # 0.0 Seg Neutrophils % 56.5 Seg Neutrophils # 3.8 Sodium 138 Potassium 4.3 Chloride 98.2 Carbon Dioxide 31 H Anion Gap 13 BUN 14 Creatinine 1.4 Estimated GFR > 60 BUN/Creatinine Ratio 10 Glucose 104 H Calcium 8.5 Total Bilirubin 0.40 AST 23 ALT 10 Alkaline Phosphatase 57 Total Protein 5.6 L Albumin 2.7 L Albumin/Globulin Ratio 0.9 Assessment and Plan Awaiting cytology on the ascitic fluid. Agree with GI evaluation. Tumor markers ordered results pending. Will follow
--- NOTE | 2017-04-24 16:28 | Progress Note ---
Assessment and Plan Total Time Spent with Patient (Minutes): 24 - Patient Problems (1) Carcinomatosis Current Visit: Yes Status: Acute Plan to address problem: Adenocarcinomatosis. Awaiting cytology and tumor markers. (2) Abdominal pain Current Visit: Yes Status: Acute Qualifiers: Abdominal location: generalized Qualified Code(s): R10.84 - Generalized abdominal pain Plan to address problem: Abdominal pain much better controlled secondary to peritoneal carcinomatosis as well. Smoking cessation. (3) Nausea and vomiting Current Visit: Yes Status: Acute Qualifiers: Vomiting type: unspecified Vomiting Intractability: non-intractable Qualified Code(s): R11.2 - Nausea with vomiting, unspecified Plan to address problem: Nausea and vomiting has resolved patient tolerating by mouth. (4) DVT prophylaxis Current Visit: Yes Status: Acute History Interval history: Patient today states he feels better. No acute findings. Hospital course on remarkable over p.m. Patient eating better. Able to tolerate some foods. Status post EGD with cold biopsy yesterday. Paracentesis complete. Hospitalist Physical - Constitutional Vitals: Temp Pulse Resp BP Pulse Ox 98.0 F 72 12 122/87 99 04/24/17 09:47 04/24/17 10:02 04/24/17 10:02 04/24/17 10:02 04/24/17 10:02 General appearance: Present: no acute distress - EENT Eyes: Present: PERRL, EOM intact, irregular pupil ENT: hearing intact, clear oral mucosa, dentition normal - Neck Neck: Present: supple, normal ROM - Respiratory Respiratory: bilateral: CTA - Cardiovascular Rhythm: irregularly irregular - Extremities Extremities: no ischemia, pulses intact, pulses symmetrical, No edema, normal temperature, normal color Peripheral Pulses: within normal limits - Abdominal General gastrointestinal: soft, tender, non-distended - Integumentary Integumentary: Present: clear, warm, dry, erythema - Psychiatric Psychiatric: appropriate mood/affect, intact judgment & insight, memory intact, cooperative - Neurologic Neurologic: CNII-XII intact Results - Labs CBC & Chem 7: 04/24/17 04:54 04/24/17 04:54 Labs: Laboratory Last Values WBC 6.8 K/mm3 (4.5-11.0) 04/24/17 04:54 RBC 3.64 M/mm3 (3.65-5.03) L 04/24/17 04:54 Hgb 11.4 gm/dl (11.8-15.2) L 04/24/17 04:54 Hct 34.0 % (35.5-45.6) L 04/24/17 04:54 MCV 93 fl (84-94) 04/24/17 04:54 MCH 31 pg (28-32) 04/24/17 04:54 MCHC 34 % (32-34) 04/24/17 04:54 RDW 12.8 % (13.2-15.2) L 04/24/17 04:54 Plt Count 338 K/mm3 (140-440) 04/24/17 04:54 Lymph % (Auto) 28.9 % (13.4-35.0) 04/24/17 04:54 [place] % (Auto) 11.3 % (0.0-7.3) H 04/24/17 04:54 Eos % (Auto) 3.1 % (0.0-4.3) 04/24/17 04:54 Baso % (Auto) 0.2 % (0.0-1.8) 04/24/17 04:54 Lymph # 2.0 K/mm3 (1.2-5.4) 04/24/17 04:54 [place] # 0.8 K/mm3 (0.0-0.8) 04/24/17 04:54 Eos # 0.2 K/mm3 (0.0-0.4) 04/24/17 04:54 Baso # 0.0 K/mm3 (0.0-0.1) 04/24/17 04:54 Seg Neutrophils % 56.5 % (40.0-70.0) 04/24/17 04:54 Seg Neutrophils # 3.8 K/mm3 (1.8-7.7) 04/24/17 04:54 PT 13.8 Sec. (12.2-14.9) 04/23/17 10:57 INR 1.01 (0.87-1.13) 04/23/17 10:57 Sodium 138 mmol/L (137-145) 04/24/17 04:54 Potassium 4.3 mmol/L (3.6-5.0) 04/24/17 04:54 Chloride 98.2 mmol/L (98-107) 04/24/17 04:54 Carbon Dioxide 31 mmol/L (22-30) H 04/24/17 04:54 Anion Gap 13 mmol/L 04/24/17 04:54 BUN 14 mg/dL (9-20) 04/24/17 04:54 Creatinine 1.4 mg/dL (0.8-1.5) 04/24/17 04:54 Estimated GFR > 60 ml/min 04/24/17 04:54 BUN/Creatinine Ratio 10 % 04/24/17 04:54 Glucose 104 mg/dL (75-100) H 04/24/17 04:54 Calcium 8.5 mg/dL (8.4-10.2) 04/24/17 04:54 Total Bilirubin 0.40 mg/dL (0.1-1.2) 04/24/17 04:54 AST 23 units/L (5-40) 04/24/17 04:54 ALT 10 units/L (7-56) 04/24/17 04:54 Alkaline Phosphatase 57 units/L (35-129) 04/24/17 04:54 Total Protein 5.6 g/dL (6.3-8.2) L 04/24/17 04:54 Albumin 2.7 g/dL (3.9-5) L 04/24/17 04:54 Albumin/Globulin Ratio 0.9 % 04/24/17 04:54 Amylase 52 units/L (27-131) 04/22/17 15:51 Lipase 10 units/L (13-60) L 04/22/17 15:51 Urine Color Yellow (Yellow) 04/22/17 13:36 Urine Turbidity Clear (Clear) 04/22/17 13:36 Urine pH 5.0 (5.0-7.0) 04/22/17 13:36 Ur Specific [place] 1.027 (1.003-1.030) 04/22/17 13:36 Urine Protein 100 mg/dl mg/dL (Negative) 04/22/17 13:36 Urine Glucose (UA) Neg mg/dL (Negative) 04/22/17 13:36 Urine Ketones 20 mg/dL (Negative) 04/22/17 13:36 Urine Blood Sm (Negative) 04/22/17 13:36 Urine Nitrite Neg (Negative) 04/22/17 13:36 Urine Bilirubin Neg (Negative) 04/22/17 13:36 Urine Urobilinogen < 2.0 mg/dL (<2.0) 04/22/17 13:36 Ur Leukocyte Esterase Neg (Negative) 04/22/17 13:36 Urine WBC (Auto) 2.0 /HPF (0.0-6.0) 04/22/17 13:36 Urine RBC (Auto) 5.0 /HPF (0.0-6.0) 04/22/17 13:36 Urine Mucus Few /HPF 04/22/17 13:36 - Imaging and Cardiology Chest x-ray: image reviewed CT scan - abdomen: image reviewed
[2017-04-24] MEDS: LOVENOX SUB-Q SCH (22:50)
[2017-04-25] MEDS ORDERED: HABITROL TD ONE
[2017-04-25] MEDS: NACL 0.9% 1000 ML 1,000 ML IV SCH ×2 (08:52→22:28)
[2017-04-25] MEDS: DILAUDID IV PRN ×2 (10:17→22:36)
[2017-04-25] MEDS: ZOFRAN IV PRN ×2 (10:17→22:36)
[2017-04-25] MEDS: NORVASC PO SCH (10:18)
[2017-04-25] MEDS: PROTONIX PO SCH (10:18)
[2017-04-25] MEDS ORDERED: GOLYTELY PO NR (12:16)
--- NOTE | 2017-04-25 12:20 | Operative Report ---
PROCEDURE PERFORMED: Esophagogastroduodenoscopy with cold biopsies. PREOPERATIVE DIAGNOSIS: Abnormal CT with possible metastatic tumor. POSTOPERATIVE DIAGNOSES: Food in the stomach, gastritis, esophagitis. ENDOSCOPIST: Jason Escobedo MD INSTRUMENT: [employer] video endoscope. MEDICATIONS: MAC anesthesia by Anesthesia Services. COMPLICATIONS: No apparent complications. ESTIMATED BLOOD LOSS: Minimal. SPECIMENS: Gastric cardia. IMPLANTS: None. ASSISTANTS: None. CONDITION AT COMPLETION: Stable. TECHNIQUE: The patient was informed of the risks and benefits of the procedure. He signed the informed consent to proceed. He was placed in left lateral decubitus position. The above sedative medications were given. His vital signs remained stable throughout the procedure. The instrument was advanced from the mouth to the second portion of the duodenum under direct visualization. At that point, the bowel was insufflated and the endoscope was slowly withdrawn. The quality of preparation was good. FINDINGS: 1. Normal duodenum. 2. Moderate amount of food in the stomach consistent with mild gastroparesis, presumably from underlying tumor; there was no obstruction at the pylorus. 3. Moderate erythema and edema in the gastric cardia, but no estela mass lesion was seen; cold biopsies were taken. 4. LA grade D erosive esophagitis, likely from his gastroparesis and vomiting. RECOMMENDATIONS: 1. Full liquid diet and advance as tolerated. 2. Follow up on pathology. 3. We will await biopsy results of the stomach and the peritoneal fluid; the patient needs PET scan as well. 4. The patient may be unable to take bowel prep due to his gastroparesis, but he eventually needs a lower endoscopy given his recent constipation. 5. Protonix daily therapy. JOB# [id number] GAYLA/NTS
--- NOTE | 2017-04-25 12:21 | Gastroenterology Progress Note ---
Assessment and Plan - Patient Problems (1) Carcinomatosis Current Visit: Yes Status: Acute Plan to address problem: - EGD 04/24 relatively unremarkable. - Paracentesis fluid is still pending. - Given constipation for the last four months (may be due to carcinomatosis) and no recent colonoscopy, will attempt to prep the patient for a colonoscopy tomorrow. - Explained at length that he needs to take small sips of preps and stop immediately if he gets nauseated. Subjective Date of service: 04/25/17 Principal diagnosis: abdominal pain, ascites from mets Interval history: The patient is stable, and was able to tolerate full liquid diet with a small BM yesterday. He has no blood in the stool. He still feels "full" and has some early satiety. He has had no blood in the BMs. Objective - Constitutional Vitals: Temp Pulse Resp BP Pulse Ox 98.6 F 60 18 125/74 97 04/25/17 07:42 04/25/17 07:42 04/25/17 07:42 04/25/17 07:42 04/25/17 07:42 General appearance: no acute distress - Respiratory Respiratory effort: normal Respiratory: bilateral: CTA - Cardiovascular Rhythm: regular Heart Sounds: Present: S1 & S2 - Gastrointestinal General gastrointestinal: Present: soft, tender (minimal diffuse tenderness without guarding), non-distended - Labs CBC & Chem 7: 04/24/17 04:54 04/24/17 04:54
--- NOTE | 2017-04-25 12:26 | Progress Note ---
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 Awaiting cytology and tumor markers. Paracentesis still pending. She is scheduled for colonoscopy in a.m. for chronic constipation. (2) Abdominal pain Current Visit: Yes Status: Acute Qualifiers: Abdominal location: generalized Qualified Code(s): R10.84 - Generalized abdominal pain Plan to address problem: Abdominal pain much better controlled secondary to peritoneal carcinomatosis as well. Smoking cessation. (3) Nausea and vomiting Current Visit: Yes Status: Acute Qualifiers: Vomiting type: unspecified Vomiting Intractability: non-intractable Qualified Code(s): R11.2 - Nausea with vomiting, unspecified Plan to address problem: Nausea and vomiting has resolved patient tolerating by mouth. (4) DVT prophylaxis Current Visit: Yes Status: Acute (5) Constipation Current Visit: Yes Status: Acute Plan to address problem: Patient has had constipation for greater than 5 months. Thought to be secondary to carcinomatosis versus mass. Patient is scheduled for colonoscopy in the a.m. EGD was unremarkable. History Interval history: Patient continues to feel better today. We advanced diet yesterday to full liquid diet and patient tolerated it well. No pain no nausea or vomiting. Patient scheduled for colonoscopy in a.m. EGD done yesterday unremarkable. All concerns answered to patient's satisfaction. Hospitalist Physical - Constitutional Vitals: Temp Pulse Resp BP Pulse Ox 98.6 F 60 18 125/74 97 04/25/17 07:42 04/25/17 07:42 04/25/17 07:42 04/25/17 07:42 04/25/17 07:42 General appearance: Present: no acute distress - EENT Eyes: Absent: EOM intact, irregular pupil ENT: clear oral mucosa, dentition normal, oropharyngeal erythema, poor dentition , no hearing intact, no thrush - Respiratory Respiratory: bilateral: CTA - Cardiovascular Rhythm: regular Heart Sounds: Present: S1 & S2 - Extremities Extremities: no ischemia, pulses intact, pulses symmetrical, No edema, normal temperature, normal color, Full ROM Peripheral Pulses: within normal limits - Abdominal General gastrointestinal: soft, tender, non-distended Localized gastrointestinal: mass: epigastric periumbilical - Integumentary Integumentary: Present: clear, warm, dry - Psychiatric Psychiatric: appropriate mood/affect, intact judgment & insight - Neurologic Neurologic: CNII-XII intact, moves all extremities Results - Labs CBC & Chem 7: 04/24/17 04:54 04/24/17 04:54 Labs: Laboratory Last Values WBC 6.8 K/mm3 (4.5-11.0) 04/24/17 04:54 RBC 3.64 M/mm3 (3.65-5.03) L 04/24/17 04:54 Hgb 11.4 gm/dl (11.8-15.2) L 04/24/17 04:54 Hct 34.0 % (35.5-45.6) L 04/24/17 04:54 MCV 93 fl (84-94) 04/24/17 04:54 MCH 31 pg (28-32) 04/24/17 04:54 MCHC 34 % (32-34) 04/24/17 04:54 RDW 12.8 % (13.2-15.2) L 04/24/17 04:54 Plt Count 338 K/mm3 (140-440) 04/24/17 04:54 Lymph % (Auto) 28.9 % (13.4-35.0) 04/24/17 04:54 [place] % (Auto) 11.3 % (0.0-7.3) H 04/24/17 04:54 Eos % (Auto) 3.1 % (0.0-4.3) 04/24/17 04:54 Baso % (Auto) 0.2 % (0.0-1.8) 04/24/17 04:54 Lymph # 2.0 K/mm3 (1.2-5.4) 04/24/17 04:54 [place] # 0.8 K/mm3 (0.0-0.8) 04/24/17 04:54 Eos # 0.2 K/mm3 (0.0-0.4) 04/24/17 04:54 Baso # 0.0 K/mm3 (0.0-0.1) 04/24/17 04:54 Seg Neutrophils % 56.5 % (40.0-70.0) 04/24/17 04:54 Seg Neutrophils # 3.8 K/mm3 (1.8-7.7) 04/24/17 04:54 PT 13.8 Sec. (12.2-14.9) 04/23/17 10:57 INR 1.01 (0.87-1.13) 04/23/17 10:57 Sodium 138 mmol/L (137-145) 04/24/17 04:54 Potassium 4.3 mmol/L (3.6-5.0) 04/24/17 04:54 Chloride 98.2 mmol/L (98-107) 04/24/17 04:54 Carbon Dioxide 31 mmol/L (22-30) H 04/24/17 04:54 Anion Gap 13 mmol/L 04/24/17 04:54 BUN 14 mg/dL (9-20) 04/24/17 04:54 Creatinine 1.4 mg/dL (0.8-1.5) 04/24/17 04:54 Estimated GFR > 60 ml/min 04/24/17 04:54 BUN/Creatinine Ratio 10 % 04/24/17 04:54 Glucose 104 mg/dL (75-100) H 04/24/17 04:54 Calcium 8.5 mg/dL (8.4-10.2) 04/24/17 04:54 Total Bilirubin 0.40 mg/dL (0.1-1.2) 04/24/17 04:54 AST 23 units/L (5-40) 04/24/17 04:54 ALT 10 units/L (7-56) 04/24/17 04:54 Alkaline Phosphatase 57 units/L (35-129) 04/24/17 04:54 Total Protein 5.6 g/dL (6.3-8.2) L 04/24/17 04:54 Albumin 2.7 g/dL (3.9-5) L 04/24/17 04:54 Albumin/Globulin Ratio 0.9 % 04/24/17 04:54 Amylase 52 units/L (27-131) 04/22/17 15:51 Lipase 10 units/L (13-60) L 04/22/17 15:51 Urine Color Yellow (Yellow) 04/22/17 13:36 Urine Turbidity Clear (Clear) 04/22/17 13:36 Urine pH 5.0 (5.0-7.0) 04/22/17 13:36 Ur Specific [place] 1.027 (1.003-1.030) 04/22/17 13:36 Urine Protein 100 mg/dl mg/dL (Negative) 04/22/17 13:36 Urine Glucose (UA) Neg mg/dL (Negative) 04/22/17 13:36 Urine Ketones 20 mg/dL (Negative) 04/22/17 13:36 Urine Blood Sm (Negative) 04/22/17 13:36 Urine Nitrite Neg (Negative) 04/22/17 13:36 Urine Bilirubin Neg (Negative) 04/22/17 13:36 Urine Urobilinogen < 2.0 mg/dL (<2.0) 04/22/17 13:36 Ur Leukocyte Esterase Neg (Negative) 04/22/17 13:36 Urine WBC (Auto) 2.0 /HPF (0.0-6.0) 04/22/17 13:36 Urine RBC (Auto) 5.0 /HPF (0.0-6.0) 04/22/17 13:36 Urine Mucus Few /HPF 04/22/17 13:36
--- NOTE | 2017-04-25 15:10 | Progress Note ---
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 Awaiting cytology and tumor markers. Paracentesis still pending. She is scheduled for colonoscopy in a.m. for chronic constipation. 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 Smoking cessation. Discussed in detail (3) Nausea and vomiting Current Visit: Yes Status: Acute Qualifiers: Vomiting type: unspecified Vomiting Intractability: non-intractable Qualified Code(s): R11.2 - Nausea with vomiting, unspecified Plan to address problem: Nausea and vomiting has resolved patient tolerating by mouth. (4) DVT prophylaxis Current Visit: Yes Status: Acute (5) Constipation Current Visit: Yes Status: Acute Plan to address problem: Patient with persistent constipation over 5 months. Paracentesis details pending patient have colonoscopy tomorrow. End to be discharged after colonoscopy in no remarkable findings. History Interval history: to feel better today. Tolerated full liquid diet No pain no nausea or vomiting. Patient scheduled for colonoscopy in a.m. EGD done yesterday unremarkable. All concerns answered to patient's satisfaction. Hospitalist Physical - Constitutional Vitals: Temp Pulse Resp BP Pulse Ox 98.6 F 60 18 125/74 97 04/25/17 07:42 04/25/17 07:42 04/25/17 07:42 04/25/17 07:42 04/25/17 07:42 General appearance: Present: no acute distress, well-nourished - EENT Eyes: Present: PERRL, EOM intact ENT: hearing intact, clear oral mucosa, dentition normal - Neck Neck: Present: supple, normal ROM - Respiratory Respiratory: bilateral: CTA - Cardiovascular Rhythm: regular Heart Sounds: Present: S1 & S2 - Extremities Extremities: no ischemia, pulses intact, pulses symmetrical, No edema, normal temperature Peripheral Pulses: within normal limits - Abdominal General gastrointestinal: soft, tender, non-distended, normal bowel sounds, no distended, no rigid, no hypoactive bowel sounds, no absent bowel sounds, no hepatomegaly, no splenomegaly, no mass - Integumentary Integumentary: Present: clear, warm, dry - Psychiatric Psychiatric: appropriate mood/affect, intact judgment & insight - Neurologic Neurologic: CNII-XII intact, moves all extremities Results - Labs CBC & Chem 7: 04/24/17 04:54 04/24/17 04:54 Labs: Laboratory Last Values WBC 6.8 K/mm3 (4.5-11.0) 04/24/17 04:54 RBC 3.64 M/mm3 (3.65-5.03) L 04/24/17 04:54 Hgb 11.4 gm/dl (11.8-15.2) L 04/24/17 04:54 Hct 34.0 % (35.5-45.6) L 04/24/17 04:54 MCV 93 fl (84-94) 04/24/17 04:54 MCH 31 pg (28-32) 04/24/17 04:54 MCHC 34 % (32-34) 04/24/17 04:54 RDW 12.8 % (13.2-15.2) L 04/24/17 04:54 Plt Count 338 K/mm3 (140-440) 04/24/17 04:54 Lymph % (Auto) 28.9 % (13.4-35.0) 04/24/17 04:54 [place] % (Auto) 11.3 % (0.0-7.3) H 04/24/17 04:54 Eos % (Auto) 3.1 % (0.0-4.3) 04/24/17 04:54 Baso % (Auto) 0.2 % (0.0-1.8) 04/24/17 04:54 Lymph # 2.0 K/mm3 (1.2-5.4) 04/24/17 04:54 [place] # 0.8 K/mm3 (0.0-0.8) 04/24/17 04:54 Eos # 0.2 K/mm3 (0.0-0.4) 04/24/17 04:54 Baso # 0.0 K/mm3 (0.0-0.1) 04/24/17 04:54 Seg Neutrophils % 56.5 % (40.0-70.0) 04/24/17 04:54 Seg Neutrophils # 3.8 K/mm3 (1.8-7.7) 04/24/17 04:54 PT 13.8 Sec. (12.2-14.9) 04/23/17 10:57 INR 1.01 (0.87-1.13) 04/23/17 10:57 Sodium 138 mmol/L (137-145) 04/24/17 04:54 Potassium 4.3 mmol/L (3.6-5.0) 04/24/17 04:54 Chloride 98.2 mmol/L (98-107) 04/24/17 04:54 Carbon Dioxide 31 mmol/L (22-30) H 04/24/17 04:54 Anion Gap 13 mmol/L 04/24/17 04:54 BUN 14 mg/dL (9-20) 04/24/17 04:54 Creatinine 1.4 mg/dL (0.8-1.5) 04/24/17 04:54 Estimated GFR > 60 ml/min 04/24/17 04:54 BUN/Creatinine Ratio 10 % 04/24/17 04:54 Glucose 104 mg/dL (75-100) H 04/24/17 04:54 Calcium 8.5 mg/dL (8.4-10.2) 04/24/17 04:54 Total Bilirubin 0.40 mg/dL (0.1-1.2) 04/24/17 04:54 AST 23 units/L (5-40) 04/24/17 04:54 ALT 10 units/L (7-56) 04/24/17 04:54 Alkaline Phosphatase 57 units/L (35-129) 04/24/17 04:54 Total Protein 5.6 g/dL (6.3-8.2) L 04/24/17 04:54 Albumin 2.7 g/dL (3.9-5) L 04/24/17 04:54 Albumin/Globulin Ratio 0.9 % 04/24/17 04:54 Amylase 52 units/L (27-131) 04/22/17 15:51 Lipase 10 units/L (13-60) L 04/22/17 15:51 Urine Color Yellow (Yellow) 04/22/17 13:36 Urine Turbidity Clear (Clear) 04/22/17 13:36 Urine pH 5.0 (5.0-7.0) 04/22/17 13:36 Ur Specific [place] 1.027 (1.003-1.030) 04/22/17 13:36 Urine Protein 100 mg/dl mg/dL (Negative) 04/22/17 13:36 Urine Glucose (UA) Neg mg/dL (Negative) 04/22/17 13:36 Urine Ketones 20 mg/dL (Negative) 04/22/17 13:36 Urine Blood Sm (Negative) 04/22/17 13:36 Urine Nitrite Neg (Negative) 04/22/17 13:36 Urine Bilirubin Neg (Negative) 04/22/17 13:36 Urine Urobilinogen < 2.0 mg/dL (<2.0) 04/22/17 13:36 Ur Leukocyte Esterase Neg (Negative) 04/22/17 13:36 Urine WBC (Auto) 2.0 /HPF (0.0-6.0) 04/22/17 13:36 Urine RBC (Auto) 5.0 /HPF (0.0-6.0) 04/22/17 13:36 Urine Mucus Few /HPF 04/22/17 13:36
[2017-04-25] MEDS: LOVENOX SUB-Q SCH (22:28)
[2017-04-25 23:43] LABS: Bilirubin,Urine NEG (Negative); Blood,Urine SM (Negative); Color,Urine Yellow (Yellow); Nitrite,Urine NEG (Negative); Protein,Urine <15 mg/dL mg/dL (Negative); RBC,Urine < 1.0 /HPF (0.0-6.0); Urobilinogen,Urine < 2.0 mg/dL (<2.0)
[2017-04-26 07:30] LABS: BUN/Creatinine Ratio 6; Blood Urea Nitrogen 8 mg/dL (9-20); Calcium 8.4 mg/dL (8.4-10.2); Hemolysis Index 4
[2017-04-26 08:11] LABS: Basophils % (Auto) 0.2 % (0.0-1.8); Eosinophils # (Auto) 0.2 K/mm3 (0.0-0.4); Eosinophils % (Auto) 3.1 % (0.0-4.3); Hematocrit 35.7 % (35.5-45.6); Hemoglobin 12.2 gm/dl (11.8-15.2); Lymphocytes # (Auto) 1.4 K/mm3 (1.2-5.4); Lymphocytes % (Auto) 20.7 % (13.4-35.0); Mean Corpuscular HGB Conc 34 % (32-34); Mean Corpuscular Hemoglobin 31 pg (28-32); Mean Corpuscular Volume 92 fl (84-94); Monocytes # (Auto) 0.7 K/mm3 (0.0-0.8); Monocytes % (Auto) 11.1 % (0.0-7.3); Platelet Count 343 K/mm3 (140-440); Red Blood Count 3.88 M/mm3 (3.65-5.03)
--- NOTE | 2017-04-26 09:49 | Hem/Onc Progress Note ---
Assessment and Plan Awaiting cytology on the ascitic fluid. Colonoscopy tomorrow Tumor markers ordered results pending. Will follow Subjective Date of service: 04/26/17 Interval history: Patient to get colonoscopy tomorrow. Complains of left-sided abdominal pain. No bowel movements in few days he says. Objective - Constitutional Vitals: Last Vital Signs Temp 98.3 F 04/26/17 07:56 Pulse 68 04/26/17 07:56 Resp 18 04/26/17 07:56 BP 131/79 04/26/17 07:56 Pulse Ox 97 04/26/17 07:56 General appearance: mild distress Performance status: 2- selfcare, ambulatory - Neck Neck: supple - Respiratory Respiratory effort: Positive: normal Respiratory: bilateral: CTA - Cardiovascular Rhythm: regular Extremities: No edema - Gastrointestinal General gastrointestinal: Present: tender (the left side), other (firm abdomen) - Labs Lab Results: Laboratory Results - last 24 hr 04/22/17 04/23/17 04/26/17 23:14 12:47 06:47 WBC 6.8 RBC 3.88 Hgb 12.2 Hct 35.7 MCV 92 MCH 31 MCHC 34 RDW 13.0 L Plt Count 343 Lymph % (Auto) 20.7 [place] % (Auto) 11.1 H Eos % (Auto) 3.1 Baso % (Auto) 0.2 Lymph # 1.4 [place] # 0.7 Eos # 0.2 Baso # 0.0 Seg Neutrophils % 64.9 Seg Neutrophils # 4.4 Sodium Potassium Chloride Carbon Dioxide Anion Gap BUN Creatinine Estimated GFR BUN/Creatinine Ratio Glucose Calcium CA 19-9 Antigen 10 Urine Color Yellow Urine Turbidity Clear Urine pH 5.0 Ur Specific [place] 1.008 Urine Protein <15 mg/dl Urine Glucose (UA) Neg Urine Ketones Neg Urine Blood Sm Urine Nitrite Neg Urine Bilirubin Neg Urine Urobilinogen < 2.0 Ur Leukocyte Esterase Neg Urine WBC (Auto) 1.0 Urine RBC (Auto) < 1.0 04/26/17 06:47 WBC RBC Hgb Hct MCV MCH MCHC RDW Plt Count Lymph % (Auto) [place] % (Auto) Eos % (Auto) Baso % (Auto) Lymph # [place] # Eos # Baso # Seg Neutrophils % Seg Neutrophils # Sodium 137 Potassium 4.5 Chloride 97.4 L Carbon Dioxide 29 Anion Gap 15 BUN 8 L Creatinine 1.3 Estimated GFR > 60 BUN/Creatinine Ratio 6 Glucose 104 H Calcium 8.4 CA 19-9 Antigen Urine Color Urine Turbidity Urine pH Ur Specific [place] Urine Protein Urine Glucose (UA) Urine Ketones Urine Blood Urine Nitrite Urine Bilirubin Urine Urobilinogen Ur Leukocyte Esterase Urine WBC (Auto) Urine RBC (Auto)
[2017-04-26] MEDS: NORVASC PO SCH (10:24)
[2017-04-26] MEDS: PROTONIX PO SCH (10:24)
[2017-04-26] MEDS: ZOFRAN IV PRN ×2 (10:28→23:07)
[2017-04-26] MEDS: DILAUDID IV PRN ×3 (10:28→23:07)
[2017-04-26] MEDS: NACL 0.9% 1000 ML 1,000 ML IV SCH ×2 (10:28→23:13)
--- NOTE | 2017-04-26 13:18 | Progress Note ---
Assessment and Plan / Carcinomatosis Adenocarcinomatosis. Awaiting cytology and tumor markers. Cytology from Paracentesis still pending. he is scheduled for colonoscopy in a.m. for chronic constipation. 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 / DVT prophylaxis lovenox /Constipation Patient with persistent constipation over 5 months. Paracentesis details pending, patient to have colonoscopy tomorrow. to be discharged after colonoscopy in no remarkable findings. Hospitalist Physical General appearance: Present: no acute distress, well-nourished - EENT Eyes: Present: PERRL, EOM intact ENT: hearing intact, clear oral mucosa, dentition normal - Neck Neck: Present: supple, normal ROM - Respiratory Respiratory: bilateral: CTA - Cardiovascular Rhythm: regular Heart Sounds: Present: S1 & S2 - Extremities Extremities: no ischemia, pulses intact, pulses symmetrical, No edema, normal temperature Peripheral Pulses: within normal limits - Abdominal General gastrointestinal: soft, tender, non-distended, normal bowel sounds, no distended, no rigid, no hypoactive bowel sounds, no absent bowel sounds, no hepatomegaly, no splenomegaly, no mass - Integumentary Integumentary: Present: clear, warm, dry - Psychiatric Psychiatric: appropriate mood/affect, intact judgment & insight - Neurologic Neurologic: CNII-XII intact, moves all extremities Subjective Date of service: 04/26/17 Principal diagnosis: abdominal pain, ascites from mets Interval history: Tolerating full liquid diet. No pain no nausea or vomiting. Patient scheduled for colonoscopy in a.m. Objective - Constitutional Vitals: Vital Signs - 12hr 04/26/17 07:56 Temperature 98.3 F Pulse Rate 68 Respiratory 18 Rate Blood Pressure 131/79 O2 Sat by Pulse 97 Oximetry - Labs CBC & Chem 7: 04/26/17 06:47 04/26/17 06:47 Labs: Abnormal lab results 04/26/17 04/26/17 Range/Units 06:47 06:47 RDW 13.0 L (13.2-15.2) % [place] % (Auto) 11.1 H (0.0-7.3) % Chloride 97.4 L (98-107) mmol/L BUN 8 L (9-20) mg/dL Glucose 104 H (75-100) mg/dL
[2017-04-26] MEDS ORDERED: GOLYTELY PO ONE (17:00)
--- NOTE | 2017-04-26 20:21 | Gastroenterology Progress Note ---
Assessment and Plan - Patient Problems (1) Carcinomatosis Current Visit: Yes Status: Acute Plan to address problem: - EGD 04/24 relatively unremarkable. - Paracentesis fluid is still pending. - Given constipation for the last four months (may be due to carcinomatosis) and no recent colonoscopy, will attempt to prep the patient for a colonoscopy tomorrow. - Explained at length that he needs to take small sips of preps and stop immediately if he gets nauseated. Subjective Date of service: 04/26/17 Principal diagnosis: Ascites, Abnormal CT scan Interval history: The patient has had 2 BMs with his prep, and is going slowly to avoid distention and vomiting. He has no blood in the stool. Objective - Constitutional Vitals: Temp Pulse Resp BP Pulse Ox 98.5 F 68 18 133/84 97 04/26/17 16:03 04/26/17 07:56 04/26/17 16:03 04/26/17 16:03 04/26/17 07:56 General appearance: no acute distress - Respiratory Respiratory effort: normal Respiratory: bilateral: CTA - Cardiovascular Rhythm: regular Heart Sounds: Present: S1 & S2 - Gastrointestinal General gastrointestinal: Present: soft, non-tender, distended (Mild ascites) - Labs CBC & Chem 7: 04/26/17 06:47 04/26/17 06:47 Labs: Laboratory Results - last 24 hr 04/22/17 04/23/17 04/26/17 23:14 12:47 06:47 WBC 6.8 RBC 3.88 Hgb 12.2 Hct 35.7 MCV 92 MCH 31 MCHC 34 RDW 13.0 L Plt Count 343 Lymph % (Auto) 20.7 [place] % (Auto) 11.1 H Eos % (Auto) 3.1 Baso % (Auto) 0.2 Lymph # 1.4 [place] # 0.7 Eos # 0.2 Baso # 0.0 Seg Neutrophils % 64.9 Seg Neutrophils # 4.4 Sodium Potassium Chloride Carbon Dioxide Anion Gap BUN Creatinine Estimated GFR BUN/Creatinine Ratio Glucose Calcium CA 19-9 Antigen 10 Urine Color Yellow Urine Turbidity Clear Urine pH 5.0 Ur Specific [place] 1.008 Urine Protein <15 mg/dl Urine Glucose (UA) Neg Urine Ketones Neg Urine Blood Sm Urine Nitrite Neg Urine Bilirubin Neg Urine Urobilinogen < 2.0 Ur Leukocyte Esterase Neg Urine WBC (Auto) 1.0 Urine RBC (Auto) < 1.0 04/26/17 06:47 WBC RBC Hgb Hct MCV MCH MCHC RDW Plt Count Lymph % (Auto) [place] % (Auto) Eos % (Auto) Baso % (Auto) Lymph # [place] # Eos # Baso # Seg Neutrophils % Seg Neutrophils # Sodium 137 Potassium 4.5 Chloride 97.4 L Carbon Dioxide 29 Anion Gap 15 BUN 8 L Creatinine 1.3 Estimated GFR > 60 BUN/Creatinine Ratio 6 Glucose 104 H Calcium 8.4 CA 19-9 Antigen Urine Color Urine Turbidity Urine pH Ur Specific [place] Urine Protein Urine Glucose (UA) Urine Ketones Urine Blood Urine Nitrite Urine Bilirubin Urine Urobilinogen Ur Leukocyte Esterase Urine WBC (Auto) Urine RBC (Auto)
[2017-04-26] MEDS: LOVENOX SUB-Q SCH (21:05)
[2017-04-27] MEDS ORDERED: DILAUDID IV PRN (05:00)
[2017-04-27] MEDS: ZOFRAN IV PRN ×2 (05:07→21:26)
[2017-04-27 06:31] LABS: BUN/Creatinine Ratio 5; Blood Urea Nitrogen 7 mg/dL (9-20); Calcium 8.6 mg/dL (8.4-10.2); Hemolysis Index 13
--- NOTE | 2017-04-27 09:40 | Hem/Onc Progress Note ---
Assessment and Plan Awaiting ascitic fluid cytology. For colonoscopy today. will follow up Subjective Date of service: 04/27/17 Interval history: For colonoscopy this afternoon. Having loose stools he states. Still trying to finish the prep for colonoscopy Objective - Constitutional Vitals: Last Vital Signs Temp 98.1 F 04/27/17 08:00 Pulse 58 L 04/27/17 08:00 Resp 16 04/27/17 08:00 BP 136/88 04/27/17 08:00 Pulse Ox 96 04/27/17 08:00 Performance status: 2- selfcare, ambulatory - Neck Neck: supple - Respiratory Respiratory effort: Positive: normal - Cardiovascular Rhythm: regular Extremities: No edema - Gastrointestinal General gastrointestinal: Present: soft (less distended) - Labs Lab Results: Laboratory Results - last 24 hr 04/27/17 05:34 Sodium 138 Potassium 4.7 Chloride 100.9 Carbon Dioxide 27 Anion Gap 15 BUN 7 L Creatinine 1.3 Estimated GFR > 60 BUN/Creatinine Ratio 5 Glucose 107 H Calcium 8.6
[2017-04-27] MEDS: NORVASC PO SCH (10:00)
[2017-04-27] MEDS: PROTONIX PO SCH (10:00)
[2017-04-27] MEDS: NACL 0.9% 1000 ML 1,000 ML IV SCH (13:50)
[2017-04-27] MEDS ORDERED: WATER FOR IRRIG STERILE IR ONE (13:54)
[2017-04-27] MEDS ORDERED: GI SPOT IJ ONE ×2 (13:55→14:09)
--- NOTE | 2017-04-27 13:59 | Anesthesia Day of Surgery ---
Anesthesia Day of Surgery - Day of Surgery Patient Examined: Yes Patient H&P Reviewed: Yes Patient is NPO: Yes
[2017-04-27] MEDS ORDERED: DIPRIVAN 10 MG/ML IV ONE ×2 (14:01)
--- NOTE | 2017-04-27 14:32 | Post Operative Note ---
Pre-op diagnosis: Abnormal CT Scan Post-op diagnosis: other (Sigmoid stricture) Findings: 1. Poor prep in the rectum 2. Sharp angulation/stricture in the lower sigmoid (25cm) likely at the site of pelvic mass on CT - Mucosa was normal, but scope could not pass Procedure: Incomplete Colonoscopy due to stricture with Leena Ink Injection Anesthesia: MAC Surgeon: GARRY VITALE Estimated blood loss: minimal Pathology: none Specimen disposition: other (N/A) Condition: stable Disposition: floor (Recs: 1. Mucosa at sigmoid area was normal (not biopsied) but may have a mass above the stricture; I suspect however that the lumen is narrowed around the extrinsic pelvic mass (on CT). 2. Will consult surgery to see tomorrow (after ascites fluid is back) aboud possible diversion surgery as I feel he will eventually get obstructed. 3. OK to continue full liquid diet at present.)
--- NOTE | 2017-04-27 16:01 | Operative Report ---
PROCEDURE PERFORMED: Incomplete colonoscopy due to stricture with Leena ink injection. PREOPERATIVE DIAGNOSIS: Abnormal CT scan with high likelihood of malignancy. POSTOPERATIVE DIAGNOSES: Sigmoid stricture at approximately 25 cm, but normal appearing mucosa; suspect extrinsic stricture. ENDOSCOPIST: Jason Escobedo MD. INSTRUMENT: [employer] video endoscope. MEDICATIONS: MAC anesthesia by Anesthesia Services as well as 3 mL of Leena ink injection for tattooing. COMPLICATIONS: No apparent complications. ESTIMATED BLOOD LOSS: Minimal. SPECIMENS: None. IMPLANTS: None. ASSISTANTS: None. CONDITION AT COMPLETION: Stable. TECHNIQUE: The patient was informed of the risks and benefits of the procedure. He signed the informed consent to proceed. He was placed in left lateral decubitus position. The above sedative medications were given. His vital signs remained stable throughout the procedure. The instrument was advanced from the anus to approximately 25 cm, the lower sigmoid. At that point, a significant narrowing of the colon, although normal mucosa, was noted. The endoscope could not pass and the area could not be insufflated with either gentle air pressure or the water jet. At that point, we tattooed the narrowed area and the endoscope was slowly withdrawn. The quality of preparation was poor. There was a moderate amount of liquid and solid stool in the rectum. FINDINGS: 1. Poor prep in the rectum/rectosigmoid colon with semi-liquid brown stool indicating no high-grade obstruction in the sigmoid colon. 2. Sharp angulations/stricture in the lower sigmoid colon, 25 cm from the anus, likely at the site of the pelvic mass seen on the CT scan. a. The mucosa appeared normal, but the endoscope could not pass and the area could not be insufflated. b. Leena ink 4 mL was injected submucosally for tattooing on the distal margin of the narrowed area. RECOMMENDATIONS: 1. The mucosa at the sigmoid area was normal and it was not biopsied, but he may have a mass above the stricture; however, I suspect more likely is that the lumen is narrowed around the extrinsic pelvic mass seen on the CT scan. 2. We will consult Surgery to see the patient tomorrow, after his ascites fluid biopsies have returned, about possible diversion surgery. I feel he will eventually get obstructed if there is metastatic tumor present. 3. Okay to continue a full liquid diet at present. JOB# [id number] GAYLA/NTS
[2017-04-27] MEDS: DILAUDID IV PRN ×2 (16:45→21:22)
--- NOTE | 2017-04-27 17:52 | Progress Note ---
Assessment and Plan Assessment and plan: / Carcinomatosis Adenocarcinomatosis. Awaiting cytology and tumor markers. Cytology from Paracentesis still pending. he is scheduled for colonoscopy in a.m. for chronic constipation. 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 / DVT prophylaxis lovenox /Constipation Patient with persistent constipation over 5 months. Paracentesis details pending, patient to have colonoscopy==>colon stricture, d/ w GI, consulted Dr. Encarnacion, ?palliative colostomy History Interval history: Patient seen and examined. Follow up on constipation. He still didnt drink all the bowel prep for colonoscopy. Hospitalist Physical - Constitutional Vitals: Temp Pulse Resp BP Pulse Ox 97.7 F 82 18 152/95 98 04/27/17 16:03 04/27/17 14:46 04/27/17 16:03 04/27/17 16:03 04/27/17 14:46 General appearance: Present: no acute distress, well-nourished - EENT Eyes: Present: PERRL, EOM intact ENT: hearing intact, clear oral mucosa - Neck Neck: Present: supple, normal ROM - Respiratory Respiratory: bilateral: CTA - Cardiovascular Rhythm: regular Heart Sounds: Present: S1 & S2 Results - Labs CBC & Chem 7: 04/26/17 06:47 04/27/17 05:34 Labs: Laboratory Last Values WBC 6.8 K/mm3 (4.5-11.0) 04/26/17 06:47 RBC 3.88 M/mm3 (3.65-5.03) 04/26/17 06:47 Hgb 12.2 gm/dl (11.8-15.2) 04/26/17 06:47 Hct 35.7 % (35.5-45.6) 04/26/17 06:47 MCV 92 fl (84-94) 04/26/17 06:47 MCH 31 pg (28-32) 04/26/17 06:47 MCHC 34 % (32-34) 04/26/17 06:47 RDW 13.0 % (13.2-15.2) L 04/26/17 06:47 Plt Count 343 K/mm3 (140-440) 04/26/17 06:47 Lymph % (Auto) 20.7 % (13.4-35.0) 04/26/17 06:47 [place] % (Auto) 11.1 % (0.0-7.3) H 04/26/17 06:47 Eos % (Auto) 3.1 % (0.0-4.3) 04/26/17 06:47 Baso % (Auto) 0.2 % (0.0-1.8) 04/26/17 06:47 Lymph # 1.4 K/mm3 (1.2-5.4) 04/26/17 06:47 [place] # 0.7 K/mm3 (0.0-0.8) 04/26/17 06:47 Eos # 0.2 K/mm3 (0.0-0.4) 04/26/17 06:47 Baso # 0.0 K/mm3 (0.0-0.1) 04/26/17 06:47 Seg Neutrophils % 64.9 % (40.0-70.0) 04/26/17 06:47 Seg Neutrophils # 4.4 K/mm3 (1.8-7.7) 04/26/17 06:47 PT 13.8 Sec. (12.2-14.9) 04/23/17 10:57 INR 1.01 (0.87-1.13) 04/23/17 10:57 Sodium 138 mmol/L (137-145) 04/27/17 05:34 Potassium 4.7 mmol/L (3.6-5.0) 04/27/17 05:34 Chloride 100.9 mmol/L (98-107) 04/27/17 05:34 Carbon Dioxide 27 mmol/L (22-30) 04/27/17 05:34 Anion Gap 15 mmol/L 04/27/17 05:34 BUN 7 mg/dL (9-20) L 04/27/17 05:34 Creatinine 1.3 mg/dL (0.8-1.5) 04/27/17 05:34 Estimated GFR > 60 ml/min 04/27/17 05:34 BUN/Creatinine Ratio 5 % 04/27/17 05:34 Glucose 107 mg/dL (75-100) H 04/27/17 05:34 Calcium 8.6 mg/dL (8.4-10.2) 04/27/17 05:34 Total Bilirubin 0.40 mg/dL (0.1-1.2) 04/24/17 04:54 AST 23 units/L (5-40) 04/24/17 04:54 ALT 10 units/L (7-56) 04/24/17 04:54 Alkaline Phosphatase 57 units/L (35-129) 04/24/17 04:54 Total Protein 5.6 g/dL (6.3-8.2) L 04/24/17 04:54 Albumin 2.7 g/dL (3.9-5) L 04/24/17 04:54 Albumin/Globulin Ratio 0.9 % 04/24/17 04:54 Amylase 52 units/L (27-131) 04/22/17 15:51 Lipase 10 units/L (13-60) L 04/22/17 15:51 CA 19-9 Antigen 10 U/mL (<34) 04/23/17 12:47 Urine Color Yellow (Yellow) 04/22/17 23:14 Urine Turbidity Clear (Clear) 04/22/17 23:14 Urine pH 5.0 (5.0-7.0) 04/22/17 23:14 Ur Specific [place] 1.008 (1.003-1.030) 04/22/17 23:14 Urine Protein <15 mg/dl mg/dL (Negative) 04/22/17 23:14 Urine Glucose (UA) Neg mg/dL (Negative) 04/22/17 23:14 Urine Ketones Neg mg/dL (Negative) 04/22/17 23:14 Urine Blood Sm (Negative) 04/22/17 23:14 Urine Nitrite Neg (Negative) 04/22/17 23:14 Urine Bilirubin Neg (Negative) 04/22/17 23:14 Urine Urobilinogen < 2.0 mg/dL (<2.0) 04/22/17 23:14 Ur Leukocyte Esterase Neg (Negative) 04/22/17 23:14 Urine WBC (Auto) 1.0 /HPF (0.0-6.0) 04/22/17 23:14 Urine RBC (Auto) < 1.0 /HPF (0.0-6.0) 04/22/17 23:14 Urine Mucus Few /HPF 04/22/17 13:36
[2017-04-27] MEDS: LOVENOX SUB-Q SCH (21:20)
[2017-04-28] MEDS: DILAUDID IV PRN ×5 (02:30→20:15)
[2017-04-28] MEDS: NACL 0.9% 1000 ML 1,000 ML IV SCH (02:31)
[2017-04-28] MEDS: ZOFRAN IV PRN ×2 (07:53→20:15)
--- NOTE | 2017-04-28 09:28 | Hem/Onc Progress Note ---
Assessment and Plan I discussed with the patient about the plan. Patient also aware of the adenocarcinoma in the ascitic fluid. Because of the fact that he has a colonic stricture and obstructive symptoms, a diverting colostomy would be ideal. Would like pathology on the pelvic mass to be able to do special stains to find the source of the malignancy. Subjective Date of service: 04/28/17 Interval history: Findings and colonoscopy noted. Case discussed with Dr. Jason vaughn. Cytology on the ascitic fluid positive for adenocarcinoma. Objective - Constitutional Vitals: Last Vital Signs Temp 98.7 F 04/27/17 20:39 Pulse 88 04/27/17 20:39 Resp 20 04/28/17 02:30 BP 152/99 04/27/17 20:39 Pulse Ox 98 04/27/17 20:39 Pain Intensity (0-10): 3/10 General appearance: mild distress Performance status: 3-limited selfcare - Neck Neck: supple - Respiratory Respiratory: bilateral: CTA - Cardiovascular Rhythm: regular Extremities: No edema - Gastrointestinal General gastrointestinal: Present: soft, distended
[2017-04-28] MEDS: PROTONIX PO SCH (10:43)
[2017-04-28] MEDS: NORVASC PO SCH (10:44)
--- NOTE | 2017-04-28 10:50 | Gastroenterology Progress Note ---
Assessment and Plan 1.carcinomatosis -EGD 04/24 relatively unremarkable -s/p colonoscopy that showed a sharp angulation/stricture in the lower sigmoid ( 25cm) likely at the site of pelvic mass on CT with mucosa normal but scope could not pass (marked with Leena Ink) -cytology on ascitic fluid positive for adenocarcinoma -oncology is following -surgery consult pending -no further GI recommendations at this time- will defer further management to surgery -will sign off, please re-consult if needed Subjective Date of service: 04/28/17 Principal diagnosis: colon obstruction Interval history: Patient resting in bed w/o acute distress. Denies abd pain or N/v but admits to abd distention. Tolerating full liquids. Objective - Constitutional Vitals: Temp Pulse Resp BP Pulse Ox 98.7 F 88 20 152/99 98 04/27/17 20:39 04/28/17 10:44 04/28/17 02:30 04/27/17 20:39 04/27/17 20:39 General appearance: no acute distress - EENT Eyes: PERRL, EOM intact ENT: hearing intact - Respiratory Respiratory: bilateral: CTA - Cardiovascular Rhythm: regular Heart Sounds: Present: S1 & S2 - Gastrointestinal General gastrointestinal: Present: tender (mild generalized TTP), distended, normal bowel sounds - Integumentary Integumentary: Present: warm, dry - Neurologic Neurological: alert and oriented x3 - Labs CBC & Chem 7: 04/26/17 06:47 04/27/17 05:34
--- NOTE | 2017-04-28 13:18 | Consultation ---
History of Present Illness Consult date: 04/28/17 Reason for consult: other (colon obstruction) Requesting physician: GARRY VITALE Chief complaint: abdominal pain - History of present illness History of present illness: 52yo M o/w healthy who presented to Ed with abdominal pain. Pt found to have near obstructing mass near sigmoid colon. unable to complete c-scope. Pt found to have malignant ascites. Gen Surg consulted for diverting colostomy, mass biopsy, and port-a-cath placement. Pt reports some abdominal discomfort and bloating. No difficulty breathing or chest pain. Past History Past Medical History: No medical history Past Surgical History: No surgical history Social history: smoking (smokes a pack of cigarettes over 2-3 days), full code. denies: alcohol abuse, prescription drug abuse, IV drug use Family history: cancer (multiple family members - none with colon cancer) Medications and Allergies Allergies Allergy/AdvReac Type Severity Reaction Status Date / Time No Known Allergies Allergy Verified 04/22/17 12:39 Home Medications Medication Instructions Recorded Confirmed Last Taken Type Dicyclomine [Bentyl] 20 mg PO QID #20 tablet 04/22/17 Unknown Rx Promethazine [Phenergan TAB] 25 mg PO Q6HR PRN #15 tab 04/22/17 Unknown Rx traMADol [Ultram 50 MG tab] 50 mg PO Q6HR PRN #12 tablet 04/22/17 Unknown Rx Active Meds: Active Medications Amlodipine Besylate (Norvasc) 5 mg PO QDAY [facility] Last Admin: 04/28/17 10:44 Dose: 5 mg Enoxaparin Sodium (Lovenox) 40 mg SUB-Q QDAY@2200 [facility] Last Admin: 04/27/17 21:20 Dose: 40 mg Hydromorphone HCl (Dilaudid) 1 mg IV Q4H PRN PRN Reason: Pain , Severe (7-10) Last Admin: 04/28/17 12:20 Dose: 1 mg Sodium Chloride (Nacl 0.9% 1000 Ml) 1,000 mls @ 75 mls/hr IV DIRECT [facility] Last Admin: 04/28/17 02:31 Dose: 75 mls/hr Ondansetron HCl (Zofran) 4 mg IV Q8H PRN PRN Reason: N/V unrelieved by Alia Last Admin: 04/28/17 07:53 Dose: 4 mg Pantoprazole Sodium (Protonix) 40 mg PO QDAY SHAYE Last Admin: 04/28/17 10:43 Dose: 40 mg Review of Systems - Constitutional no fever, no chills - Cardiovascular no chest pain, no rapid/irregular heart beat - Respiratory no cough, no shortness of breath - Gastrointestinal abdominal pain (lower abdomen), constipation, change in bowel habits, no nausea , no vomiting - Integumentary no rash - Hematologic/Lymphatic no easy bruising, no easy bleeding Exam Vital Signs Temp Pulse Resp BP Pulse Ox 98.2 F 90 16 160/102 100 04/22/17 12:40 04/22/17 12:40 04/22/17 12:40 04/22/17 12:40 04/22/17 12:40 - General physical appearance Positive: well developed, well nourished, no distress, no pain - Eyes Positive: normal occular movement - Neck Positive: trachea midline - Respiratory Positive: normal expansion, normal respiratory effort, clear to auscultation - Cardiovascular Rhythm: regular - Abdomen Abdomen: Present: soft, tender (minimal in lower abdomen), bowel sounds normal, distended. Absent: rigid, wound, surgical scars Hernia: none - Genitourinary Male Genitourinary: deferred - Integumentary no rash - Neurologic Neurologic: alert and oriented to time, place and person, motor strength and sensation are grossly intact - Psychiatric Psychiatric: appropriate mood/affect, intact judgment & insight Results - Labs 04/26/17 06:47 04/27/17 05:34 - Imaging CT scan - abdomen: report reviewed, image reviewed Additional studies: pathology reports Assessment and Plan - Patient Problems (1) Carcinomatosis Current Visit: Yes Status: Acute Plan to address problem: Pt stable. Pt with near obstruction of colon due to pelvic mass. Pt in need of diverting colostomy. Procedure, risks, benefits, alternatives discussed. All questions answered. Pt wishes to proceed with surgery. Tentatively scheduled for 1pm tomorrow. Consent signed. Ostomy nurse consulted for ostomy marking. Will also plan to place port for chemotherapy and biopsy pelvic mass, if possible. Time=75min
[2017-04-28] MEDS ORDERED: ANCEF/STERILE WATER 2 GM/20 ML 2 GM/20 ML SYRINGE IV NR (14:00)
--- NOTE | 2017-04-28 17:32 | Progress Note ---
Assessment and Plan Assessment and plan: Patient is a 62-year-old man who presented with abdominal pain and was found to have near obstructing mass near sigmoid colon unable to complete a colonoscopy and malignant ascites. 04/22/17 CT abd/pelvis w/ contrast Findings are highly suspicious for peritoneal carcinomatosis. Possible source of malignancy could be gastrointestinal. There is a large amount of ascites. There is no mechanical bowel obstruction. Liver and spleen lesions could also be metastatic in nature. There hydronephrosis of the right kidney. This could be due to distal ureteral stricture caused by extrinsic compression from pelvic mass. 04/23/17 Ultrasound guided Paracentesis removed a total of 1.5 Liters of fluid and 120cc was sent for lab evaluation 04/24/17 EGD showed gastritis, esophagitis and possible gastroparesis / Carcinomatosis with malignant ascites Adenocarcinomatosis, port to be placed for possible chemo. /Constipation due to Cancer with Colon stricture /Colon Cancer d/w Dr. Callahan, will need biopsy during surgery /partial colon obstruction due to obstructing Colon Cancer Diverting colostomy / DVT prophylaxis d/c lovenox for surgery History Interval history: Patient seen and examined. Follow up on constipation. Overnight uneventful. Discussed with patient and his , parents at bedside Hospitalist Physical - Physical exam Narrative exam: GEN: WDWN, NAD, AWAKE, ALERT, ORIENTATED 3 HEENT: NCAT, EOMI, PERRL, OP Clear NECK: supple, no adenopathy, no thyromegaly, no JVD CVS/HEART: RRR, NORMAL S1S2, pulses present bilaterally CHEST/LUNGS: CTA B, Symmetrical chest expansion, good air entry bilaterally GI/Abdomen: soft, NT, good bowel sounds, no guarding or rebound /Bladder: no suprapubic tenderness, no CVA or paraspinal tenderness EXT/Skin: no c/c/e, no obvious rash MSK: FROM x 4 Neuro: CN 2-12 grossly intact, no new focal deficits Psych: calm - Constitutional Vitals: Temp Pulse Resp BP Pulse Ox 98.9 F 67 20 160/99 97 04/28/17 16:05 04/28/17 16:05 04/28/17 16:05 04/28/17 16:05 04/28/17 16:05 General appearance: Present: no acute distress, well-nourished Results - Labs CBC & Chem 7: 02/12/18 06:47 04/27/17 05:34 Labs: Laboratory Last Values WBC 6.8 K/mm3 (4.5-11.0) 04/26/17 06:47 RBC 3.88 M/mm3 (3.65-5.03) 04/26/17 06:47 Hgb 12.2 gm/dl (11.8-15.2) 04/26/17 06:47 Hct 35.7 % (35.5-45.6) 04/26/17 06:47 MCV 92 fl (84-94) 04/26/17 06:47 MCH 31 pg (28-32) 04/26/17 06:47 MCHC 34 % (32-34) 04/26/17 06:47 RDW 13.0 % (13.2-15.2) L 04/26/17 06:47 Plt Count 343 K/mm3 (140-440) 04/26/17 06:47 Lymph % (Auto) 20.7 % (13.4-35.0) 04/26/17 06:47 Cass % (Auto) 11.1 % (0.0-7.3) H 04/26/17 06:47 Eos % (Auto) 3.1 % (0.0-4.3) 04/26/17 06:47 Baso % (Auto) 0.2 % (0.0-1.8) 04/26/17 06:47 Lymph # 1.4 K/mm3 (1.2-5.4) 04/26/17 06:47 Cass # 0.7 K/mm3 (0.0-0.8) 04/26/17 06:47 Eos # 0.2 K/mm3 (0.0-0.4) 04/26/17 06:47 Baso # 0.0 K/mm3 (0.0-0.1) 04/26/17 06:47 Seg Neutrophils % 64.9 % (40.0-70.0) 04/26/17 06:47 Seg Neutrophils # 4.4 K/mm3 (1.8-7.7) 04/26/17 06:47 PT 13.8 Sec. (12.2-14.9) 04/23/17 10:57 INR 1.01 (0.87-1.13) 04/23/17 10:57 Sodium 138 mmol/L (137-145) 04/27/17 05:34 Potassium 4.7 mmol/L (3.6-5.0) 04/27/17 05:34 Chloride 100.9 mmol/L (98-107) 04/27/17 05:34 Carbon Dioxide 27 mmol/L (22-30) 04/27/17 05:34 Anion Gap 15 mmol/L 04/27/17 05:34 BUN 7 mg/dL (9-20) L 04/27/17 05:34 Creatinine 1.3 mg/dL (0.8-1.5) 04/27/17 05:34 Estimated GFR > 60 ml/min 04/27/17 05:34 BUN/Creatinine Ratio 5 % 04/27/17 05:34 Glucose 107 mg/dL (75-100) H 04/27/17 05:34 Calcium 8.6 mg/dL (8.4-10.2) 04/27/17 05:34 Total Bilirubin 0.40 mg/dL (0.1-1.2) 04/24/17 04:54 AST 23 units/L (5-40) 04/24/17 04:54 ALT 10 units/L (7-56) 04/24/17 04:54 Alkaline Phosphatase 57 units/L (35-129) 04/24/17 04:54 Total Protein 5.6 g/dL (6.3-8.2) L 04/24/17 04:54 Albumin 2.7 g/dL (3.9-5) L 04/24/17 04:54 Albumin/Globulin Ratio 0.9 % 04/24/17 04:54 Amylase 52 units/L (27-131) 04/22/17 15:51 Lipase 10 units/L (13-60) L 04/22/17 15:51 CA 19-9 Antigen 10 U/mL (<34) 04/23/17 12:47 Prostate Specific Ag 1.19 ng/mL (0.00-4.00) 04/28/17 09:49 Urine Color Yellow (Yellow) 04/22/17 23:14 Urine Turbidity Clear (Clear) 04/22/17 23:14 Urine pH 5.0 (5.0-7.0) 04/22/17 23:14 Ur Specific Elkins 1.008 (1.003-1.030) 04/22/17 23:14 Urine Protein <15 mg/dl mg/dL (Negative) 04/22/17 23:14 Urine Glucose (UA) Neg mg/dL (Negative) 04/22/17 23:14 Urine Ketones Neg mg/dL (Negative) 04/22/17 23:14 Urine Blood Sm (Negative) 04/22/17 23:14 Urine Nitrite Neg (Negative) 04/22/17 23:14 Urine Bilirubin Neg (Negative) 04/22/17 23:14 Urine Urobilinogen < 2.0 mg/dL (<2.0) 04/22/17 23:14 Ur Leukocyte Esterase Neg (Negative) 04/22/17 23:14 Urine WBC (Auto) 1.0 /HPF (0.0-6.0) 04/22/17 23:14 Urine RBC (Auto) < 1.0 /HPF (0.0-6.0) 04/22/17 23:14 Urine Mucus Few /HPF 04/22/17 13:36
[2017-04-29] MEDS: DILAUDID IV PRN ×6 (01:15→22:00)
[2017-04-29 05:54] LABS: Hematocrit 35.9 % (35.5-45.6); Hemoglobin 12.2 gm/dl (11.8-15.2); Mean Corpuscular HGB Conc 34 % (32-34); Mean Corpuscular Hemoglobin 31 pg (28-32); Mean Corpuscular Volume 92 fl (84-94); Platelet Count 362 K/mm3 (140-440); Red Blood Count 3.88 M/mm3 (3.65-5.03)
[2017-04-29 06:14] LABS: BUN/Creatinine Ratio 8; Blood Urea Nitrogen 9 mg/dL (9-20); Calcium 8.7 mg/dL (8.4-10.2); Hemolysis Index 4
[2017-04-29 06:36] LABS: Partial Thromboplastin Time 38.6 Sec. (24.2-36.6)
[2017-04-29] MEDS ORDERED: VERSED IV NR (09:00)
[2017-04-29] MEDS ORDERED: PEPCID IV NR (09:00)
--- NOTE | 2017-04-29 10:40 | Event Note ---
Date: 04/29/17 Pre-op check. Pt has no further questions. Ready for surgery. Discussed drain placement. has not been marked yet by Ostomy nurse.
[2017-04-29] MEDS: PROTONIX PO SCH (10:56)
[2017-04-29] MEDS: NORVASC PO SCH (10:56)
--- NOTE | 2017-04-29 11:12 | Anesthesia Consultation ---
Anesthesia Consult and Med Hx Date of service: 04/29/17 - Airway Anesthetic Teeth Evaluation: Good ROM Head & Neck: Adequate Mental/Hyoid Distance: Adequate Mallampati Class: Class II Intubation Access Assessment: Probably Good - Pulmonary Exam CTA: Yes - Cardiac Exam Cardiac Exam: RRR - Pre-Operative Health Status ASA Pre-Surgery Classification: ASA3 Proposed Anesthetic Plan: General - Pre-Anesthesia Comment Pre-Anesthesia Comments: obstructing mass near sigmoid colon - Pulmonary Hx Smoking: Yes - Cardiovascular System Hx Hypertension: Yes (New dx ) - Gastrointestinal Hx Gastroesophageal Reflux Disease: Yes - Other Systems Hx Cancer: Yes (metastatic adenocarcinoma )
--- NOTE | 2017-04-29 11:12 | Anesthesia Day of Surgery ---
Anesthesia Day of Surgery - Day of Surgery Patient Examined: Yes Patient H&P Reviewed: Yes Patient is NPO: Yes
[2017-04-29] MEDS ORDERED: SUBLIMAZE ONE ×2 (13:02→15:49)
[2017-04-29] MEDS ORDERED: DIPRIVAN 10 MG/ML IV ONE (13:02)
[2017-04-29] MEDS ORDERED: QUELICIN ONE (13:03)
[2017-04-29] MEDS ORDERED: DECADRON ONE (13:06)
[2017-04-29] MEDS ORDERED: XYLOCAINE CARDIAC IV ONE (13:06)
[2017-04-29] MEDS ORDERED: ZOFRAN ONE (13:06)
[2017-04-29] MEDS ORDERED: NACL 0.9% 250ML 250 ML ONE (13:08)
[2017-04-29] MEDS ORDERED: XYLOCAINE 1% 20 mL ONE ×2 (13:08→14:51)
[2017-04-29] MEDS ORDERED: HEPARIN 10,000 UNITS/10 ML ONE (13:08)
[2017-04-29] MEDS ORDERED: ePHEDrine SULFATE ONE (13:45)
[2017-04-29] MEDS ORDERED: ANCEF/STERILE WATER 2 GM/20 ML 2 GM/20 ML SYRINGE IV NR (14:00)
[2017-04-29] MEDS ORDERED: NACL 0.9% IR ONE ×2 (14:22→16:06)
[2017-04-29] MEDS ORDERED: NACL P/F VIAL (10 ML) 0 ML ONE (14:51)
[2017-04-29] MEDS ORDERED: HEPARIN 10,000 UNITS/10 ML IV ONE (15:00)
[2017-04-29] MEDS ORDERED: HEPARIN 10,000 UNITS/10 ML 1,000 UNIT in NACL 0.9% 250ML 250 ML IR ONE (15:00)
--- NOTE | 2017-04-29 15:37 | Progress Note ---
Assessment and Plan Assessment and plan: Patient is a 62-year-old man who presented with abdominal pain and was found to have near obstructing mass near sigmoid colon unable to complete a colonoscopy and malignant ascites. 04/22/17 CT abd/pelvis w/ contrast Findings are highly suspicious for peritoneal carcinomatosis. Possible source of malignancy could be gastrointestinal. There is a large amount of ascites. There is no mechanical bowel obstruction. Liver and spleen lesions could also be metastatic in nature. There hydronephrosis of the right kidney. This could be due to distal ureteral stricture caused by extrinsic compression from pelvic mass. 04/23/17 Ultrasound guided Paracentesis removed a total of 1.5 Liters of fluid and 120cc was sent for lab evaluation 04/24/17 EGD showed gastritis, esophagitis and possible gastroparesis / Carcinomatosis with malignant ascites Adenocarcinomatosis, port to be placed for possible chemo. /Constipation due to Cancer with Colon stricture /Colon Cancer d/w Dr. Callahan, will need biopsy during surgery /partial colon obstruction due to obstructing Colon Cancer Diverting colostomy / DVT prophylaxis d/c lovenox for surgery History Interval history: Patient seen and examined. Follow up on constipation. Overnight uneventful. Discussed with patient and his , parents at bedside Hospitalist Physical - Physical exam Narrative exam: GEN: WDWN, NAD, AWAKE, ALERT, ORIENTATED 3 HEENT: NCAT, EOMI, PERRL, OP Clear NECK: supple, no adenopathy, no thyromegaly, no JVD CVS/HEART: RRR, NORMAL S1S2, pulses present bilaterally CHEST/LUNGS: CTA B, Symmetrical chest expansion, good air entry bilaterally GI/Abdomen: soft, NT, good bowel sounds, no guarding or rebound /Bladder: no suprapubic tenderness, no CVA or paraspinal tenderness EXT/Skin: no c/c/e, no obvious rash MSK: FROM x 4 Neuro: CN 2-12 grossly intact, no new focal deficits Psych: calm - Constitutional Vitals: Temp Pulse Resp BP Pulse Ox 98.6 F 63 18 138/94 98 04/29/17 13:05 04/29/17 13:05 04/29/17 13:05 04/29/17 13:05 04/29/17 13:05 General appearance: Present: no acute distress, well-nourished Results - Labs CBC & Chem 7: 02/15/18 04:57 04/29/17 04:57 Labs: Laboratory Last Values WBC 6.3 K/mm3 (4.5-11.0) 04/29/17 04:57 RBC 3.88 M/mm3 (3.65-5.03) 04/29/17 04:57 Hgb 12.2 gm/dl (11.8-15.2) 04/29/17 04:57 Hct 35.9 % (35.5-45.6) 04/29/17 04:57 MCV 92 fl (84-94) 04/29/17 04:57 MCH 31 pg (28-32) 04/29/17 04:57 MCHC 34 % (32-34) 04/29/17 04:57 RDW 13.0 % (13.2-15.2) L 04/29/17 04:57 Plt Count 362 K/mm3 (140-440) 04/29/17 04:57 Lymph % (Auto) 20.7 % (13.4-35.0) 04/26/17 06:47 [place]ulkner % (Auto) 11.1 % (0.0-7.3) H 04/26/17 06:47 Eos % (Auto) 3.1 % (0.0-4.3) 04/26/17 06:47 Baso % (Auto) 0.2 % (0.0-1.8) 04/26/17 06:47 Lymph # 1.4 K/mm3 (1.2-5.4) 04/26/17 06:47 [place]ner # 0.7 K/mm3 (0.0-0.8) 04/26/17 06:47 Eos # 0.2 K/mm3 (0.0-0.4) 04/26/17 06:47 Baso # 0.0 K/mm3 (0.0-0.1) 04/26/17 06:47 Seg Neutrophils % 64.9 % (40.0-70.0) 04/26/17 06:47 Seg Neutrophils # 4.4 K/mm3 (1.8-7.7) 04/26/17 06:47 PT 13.7 Sec. (12.2-14.9) 04/29/17 04:57 INR 1.00 (0.87-1.13) 04/29/17 04:57 APTT 38.6 Sec. (24.2-36.6) H 04/29/17 04:57 Sodium 134 mmol/L (137-145) L 04/29/17 04:57 Potassium 4.2 mmol/L (3.6-5.0) 04/29/17 04:57 Chloride 96.5 mmol/L (98-107) L 04/29/17 04:57 Carbon Dioxide 27 mmol/L (22-30) 04/29/17 04:57 Anion Gap 15 mmol/L 04/29/17 04:57 BUN 9 mg/dL (9-20) 04/29/17 04:57 Creatinine 1.2 mg/dL (0.8-1.5) 04/29/17 04:57 Estimated GFR > 60 ml/min 04/29/17 04:57 BUN/Creatinine Ratio 8 % 04/29/17 04:57 Glucose 149 mg/dL (75-100) H 04/29/17 04:57 Calcium 8.7 mg/dL (8.4-10.2) 04/29/17 04:57 Magnesium 1.70 mg/dL (1.7-2.3) 04/29/17 04:57 Total Bilirubin 0.40 mg/dL (0.1-1.2) 04/24/17 04:54 AST 23 units/L (5-40) 04/24/17 04:54 ALT 10 units/L (7-56) 04/24/17 04:54 Alkaline Phosphatase 57 units/L (35-129) 04/24/17 04:54 Total Protein 5.6 g/dL (6.3-8.2) L 04/24/17 04:54 Albumin 2.7 g/dL (3.9-5) L 04/24/17 04:54 Albumin/Globulin Ratio 0.9 % 04/24/17 04:54 Amylase 52 units/L (27-131) 04/22/17 15:51 Lipase 10 units/L (13-60) L 04/22/17 15:51 CA 19-9 Antigen 10 U/mL (<34) 04/23/17 12:47 Prostate Specific Ag 1.19 ng/mL (0.00-4.00) 04/28/17 09:49 Urine Color Yellow (Yellow) 04/22/17 23:14 Urine Turbidity Clear (Clear) 04/22/17 23:14 Urine pH 5.0 (5.0-7.0) 04/22/17 23:14 Ur Specific Sargeant 1.008 (1.003-1.030) 04/22/17 23:14 Urine Protein <15 mg/dl mg/dL (Negative) 04/22/17 23:14 Urine Glucose (UA) Neg mg/dL (Negative) 04/22/17 23:14 Urine Ketones Neg mg/dL (Negative) 04/22/17 23:14 Urine Blood Sm (Negative) 04/22/17 23:14 Urine Nitrite Neg (Negative) 04/22/17 23:14 Urine Bilirubin Neg (Negative) 04/22/17 23:14 Urine Urobilinogen < 2.0 mg/dL (<2.0) 04/22/17 23:14 Ur Leukocyte Esterase Neg (Negative) 04/22/17 23:14 Urine WBC (Auto) 1.0 /HPF (0.0-6.0) 04/22/17 23:14 Urine RBC (Auto) < 1.0 /HPF (0.0-6.0) 04/22/17 23:14 Urine Mucus Few /HPF 04/22/17 13:36
[2017-04-29] MEDS ORDERED: XYLOCAINE 1% 20 mL INFILTRATI ONE ×2 (16:06)
--- NOTE | 2017-04-29 17:39 | Post Operative Note ---
Pre-op diagnosis: metastatic adenocarcinoma Post-op diagnosis: same Findings: extensive intra-abdominal spread of cancer. Large mass in midline. bowel stuck to each other. Procedure: Infusaport placement under ultrasound guidance, dx laparoscopy, mass biopsy, drain placement Anesthesia: MARIZOL Surgeon: OCTAVIO ZHENG Estimated blood loss: minimal (~40cc) Pathology: list ([id number] midline intra-abdominal mass) Specimen disposition: to lab Condition: stable Disposition: PACU
[2017-04-29] MEDS ORDERED: APRESOLINE IV PRN (18:03)
--- NOTE | 2017-04-29 18:25 | Post Anesthesia Evaluation ---
- Post Anesthesia Evaluation Patient Participated: Yes Airway Patent: Yes Stable Respiratory Function: Yes Nausea/Vomiting: No Temp > 96.8F: Yes Pain Manageable: Yes Adequeate Hydration: Yes Anesthesia Complications: No Block Receding Appropriately: Not Applicable Patient on Ventilator: No
--- NOTE | 2017-04-29 21:42 | XRay Report ---
FINAL REPORT PROCEDURE: XR CHEST 1V AP TECHNIQUE: Chest radiograph anteroposterior view. CPT 02828 HISTORY: Port-a-cath placement COMPARISON: No prior studies are available for comparison. FINDINGS: Heart: Normal. Mediastinum/Vessels: Normal. Lungs/Pleural space: Normal. Bony thorax: No acute osseous abnormality. Life support devices: A left-sided chest port is noted with its catheter terminating at the level of proximal superior vena cava. IMPRESSION: No acute cardiopulmonary abnormality.
--- NOTE | 2017-04-29 22:09 | Operative Report ---
PREOPERATIVE DIAGNOSIS: Metastatic adenocarcinoma. POSTOPERATIVE DIAGNOSIS: Metastatic adenocarcinoma. PROCEDURES: 1. Ultrasound-guided Port-A-Cath placement. 2. Diagnostic laparoscopy. 3. Intra-abdominal tumor biopsy. 4. Intra-abdominal drain placement. ATTENDING PHYSICIAN: Ana Encarnacion M.D. ANESTHESIA: General. ESTIMATED BLOOD LOSS: 40 mL. FLUIDS: 1800 mL. FINDINGS: Widespread dissemination of cancerous changes throughout the abdomen. There was a large presumably cancerous mass down the middle of the abdomen. Bowel was adherent to each other with deposits of white plaques throughout the intra-abdominal cavity and the abdominal wall. I was unable to differentiate the pelvic mass from the bowel. It seemed to be all incorporated together. SPECIMEN: A 1.5 x 2.0 x 3.0 cm specimen of the midline intra-abdominal mass. This was sent to pathology as a permanent section. We conferred with the pathologist to make sure that we sent it appropriately. DRAINS: Hemovac drain was placed into the abdominal cavity as it had a larger container for collection, stable transport to recovery. No complications. INDICATIONS: This is an unfortunate 52-year-old male with a few months history of progressively worsening abdominal distention and pain. He was found to have metastatic adenocarcinoma with a large pelvic mass. He was felt to be in need for a palliative diverting colostomy along with a Port-A-Cath placement. Procedures benefits were explained to the patient. Risks include but not limited to infection, bleeding, pain, injury to surrounding structures, possible need for further surgeries in the future. The patient understood and consented. OPERATIVE NOTE: The patient was brought to the operating room and placed on table in supine position. After adequate general anesthesia was established, the patient was prepped and draped in usual sterile fashion. Two grams of Ancef had been administered prior to start of the case. SCDs were in place. Fung catheter was in place. I began the case by evaluating with ultrasound the subclavian and internal jugular veins. The subclavian vein had an unusual appearance of course and was difficult to visualize. Therefore, I turned my attention to the internal jugular vein on the left side. I assessed the internal jugular vein. It was easily compressible, had good flow through there. It was of wide caliber and could be completely compressed to confirm the vein and I could see the artery pulsating medially to it. Under direct ultrasound guidance, I watched the introducer needle be inserted on the left side of the neck and followed its course into the internal jugular vein. I was able to aspirate blood. However, on multiple attempts, I was unable to pass the wire. Finally, with subsequent attempts, I was able to again access the internal jugular vein under direct vision of ultrasound, could see the needle tip in the vein. I passed the wire. At this time, is able to go, but it went into the right internal jugular vein. Under fluoroscopic guidance, I pulled it back and then was finally able after 4 attempts to pass the wire into the superior vena cava and it went into the inferior vena cava. From there, I then marked out the site where the Port-A-Cath would be placed. Oblique incision was made after the area had been anesthetized and a pocket was created. The port fit easily. We then passed the catheter using the tunneler underneath the skin up to the neck and brought it out through the site where we had introduced the guidewire. During this entire time, the patient was in Trendelenburg position. Then, using the dilator and sheath, we passed it gently over the wire. We confirmed the position with fluoroscopy. We removed the internal dilator and then passed the catheter into place. We adjusted its position such that it was about 2 vertebral bodies below the rosalina and at the atriocaval junction. Thereafter, we removed the excess catheter. We divided the catheter about 25 cm, inserted the port into our pocket and then connected the catheter. There was a slight bend so we worked on getting that bend out. Once checked with fluoroscopy, we had a very smooth course of the catheter. The tip was at the atriocaval junction. We had very easy aspiration. We flushed with 10 mL of heparinized saline and then locked it with 5 mL, which was 1 mL of 1:10,000 units per mL of heparin and then 4 mL of normal saline. I closed the dermis with interrupted 3-0 Vicryl sutures and skin at both sites were closed with 4-0 Monocryl subcuticular stitches. Skin was cleaned and dried. Dermabond was placed. The patient tolerated procedure well. There were no complications. On fluoroscopy, we saw no evidence of any pneumothorax or any intrathoracic complication. We then turned our attention to the abdominal cavity. We had already prepped the entire body and draped it out appropriately so we were able to quickly move over. Using the ostomy site that was marked out by the ostomy nurse, we made a transverse incision there and used that as our entry point as we have to make it bigger for the ostomy itself. I thought I could use this as my entry point to put my first port. We divided the anterior fascia, mobilized the muscle so as not to divide it and then divided the posterior fascia. We entered the peritoneal cavity safely. There was a large amount of ascites as expected. We suctioned out a large amount and inserted our 10 mm port. Upon entry of the camera, we saw diffuse signs of cancer. There were deposits all over the abdominal wall anteriorly on the bowel. There was a large mass down the midline that looked to be one large tumorous growth. The pelvic mass that we originally planned to biopsy was indistinguishable from bowel as it was all entangled. The bowel itself was densely adhered to each other. It was very difficult to try to free it up easily. The bowel seemed to be matted in place that I was unable to move the small bowel out from the lower abdomen in order to identify the sigmoid and descending colon. All of it was stuck together. I placed a 5 mm port in the suprapubic area, another 10 mm port in the right lower quadrant and 5 mm port in the right upper quadrant. The large mass down the center which was densely adherent was difficult to work around. I felt that as the bowel was matted down very well, very densely I would be unable to safely mobilize it and get to the colon. Therefore, I tried to turn my attention to the small bowel to see if I can mobilize some of it and give him an ileostomy, at least the patient will be able to eat and drink something even though managing his fluid losses and everything would be more challenging. In trying to mobilize the small bowel, this was also densely adherent to each other and to the posterior aspect of the peritoneal cavity. I was unable to easily bring it up to the anterior abdominal wall. At this point, I felt that it would potentially cause more harm for me to try to free everything up as he would be at high risk for bowel injury and then subsequent multiple fistula formation. At this point, I had the and sister brought into a consultation room and I scrubbed out of the case to go speak with them. The patient was hemodynamically stable at this time. I brought the pictures I had taken and showed them all the signs of cancer throughout the abdominal cavity. I spoke with Dr. Callahan, the oncologist that is on the case, to make sure there was nothing else that she would like me to try to do. The family agreed that it would not be in his best interest to do a large midline incision to try to dissect the bowel as this potentially may just cause more harm than good. Therefore, we elected just to biopsy a large mass so Oncology would have enough tissue to evaluate and I was going to leave a drain in place to allow to periodically decompress the abdomen to provide him some comfort. We dissected a large piece of tissue off the midline mass using the Harmonic scalpel. We had excellent hemostasis at the end. The specimen was brought out through the 10 mm port and then sent to pathology in sterile fashion in permanent solution. A drain was placed using the 5 mm port. It was brought through there in the right upper quadrant. Thereafter, we checked again that we had good hemostasis. We saw no other complications. I looked at the bowel, I did not see anything that suggested I had injured the bowel at any point. We then removed all the ports. I closed the posterior and anterior fascial layers in the left-sided incision using 0 Ethibond running sutures. I closed the right lower quadrant 10 mm port site with 0 Ethibond sutures. Skin was cleaned and dried and all closed with mignon. I used a 3-0 nylon to secure the drain site. The patient tolerated procedure well. There were no complications. Chest x-ray will be done at the end of the case. JOB# [id number] TOM/LAURA
[2017-04-30] MEDS: DILAUDID IV PRN ×5 (02:13→20:46)
[2017-04-30 05:25] LABS: Hematocrit 33.9 % (35.5-45.6); Hemoglobin 11.7 gm/dl (11.8-15.2); Mean Corpuscular HGB Conc 35 % (32-34); Mean Corpuscular Hemoglobin 32 pg (28-32); Mean Corpuscular Volume 92 fl (84-94); Platelet Count 339 K/mm3 (140-440); Red Blood Count 3.69 M/mm3 (3.65-5.03); Red Cell Distribution Width 12.8 % (13.2-15.2)
[2017-04-30 05:36] LABS: BUN/Creatinine Ratio 9; Blood Urea Nitrogen 12 mg/dL (9-20); Calcium 8.5 mg/dL (8.4-10.2); Hemolysis Index 3
[2017-04-30] MEDS: NACL 0.9% 1000 ML 1,000 ML IV SCH ×2 (07:21→08:44)
--- NOTE | 2017-04-30 08:46 | Fluoroscopy Report ---
Fluoroscopy central venous device placement History: Adenocarcinoma, Fwznsb-k-Exny insertion. Findings: A single fluoroscopic b image of the left hemithorax was obtained during left Nvroxh-g-Ykzj insertion. The left IJ Zphplf-r-Byxr terminates at the cavoatrial junction. There is no evidence for pneumothorax on this limited fluoroscopic image. An endotracheal tube is in good position. Impression: The left Kgspbp-w-Pwwr terminates at the cavoatrial junction. No obvious pneumothorax.
--- NOTE | 2017-04-30 09:08 | Hem/Onc Progress Note ---
Assessment and Plan Had a lengthy discussion with the patient and his family members were present. Prognosis is poor. Awaiting final pathology. Currently he is on clear liquids but there is a strong possibility that he can obstruct and we may have to do parentral nutrition. Once pathology is back can decide about the type of chemotherapy which is the only option here. Chemotherapy will be palliative at this time. We will also check hCG and alpha-fetoprotein Subjective Date of service: 04/30/17 Interval history: Findings during operation noted. Case was discussed with Dr. mckeon intraoperatively. The patient has a very extensive involvement of the whole abdomen with bowels socked in with the tumor making any form of ostomy impossible. Biopsy was taken. Port was placed. Patient's PSA within normal limits. Objective - Constitutional Vitals: Last Vital Signs Temp 97.3 F L 04/29/17 19:31 Pulse 84 04/29/17 22:00 Resp 20 04/30/17 07:22 BP 148/86 04/29/17 19:31 Pulse Ox 96 04/29/17 19:31 Performance status: 4-completely disabled - Neck Neck: supple - Respiratory Respiratory: bilateral: diminished - Gastrointestinal General gastrointestinal: Present: other (postop changes) - Labs Lab Results: Laboratory Results - last 24 hr 04/23/17 04/28/17 04/30/17 12:47 09:49 04:30 WBC 8.0 RBC 3.69 Hgb 11.7 L Hct 33.9 L MCV 92 MCH 32 MCHC 35 H RDW 12.8 L Plt Count 339 Sodium Potassium Chloride Carbon Dioxide Anion Gap BUN Creatinine Estimated GFR BUN/Creatinine Ratio Glucose Calcium Carcinoembryonic Ag See scanned report See scanned report 04/30/17 04:30 WBC RBC Hgb Hct MCV MCH MCHC RDW Plt Count Sodium 139 Potassium 5.4 H D Chloride 99.3 Carbon Dioxide 26 Anion Gap 19 BUN 12 Creatinine 1.3 Estimated GFR > 60 BUN/Creatinine Ratio 9 Glucose 111 H Calcium 8.5 Carcinoembryonic Ag
--- NOTE | 2017-04-30 10:57 | Progress Note ---
Assessment and Plan - Patient Problems (1) Carcinomatosis Current Visit: Yes Status: Acute Plan to address problem: Patient stable at this time. No concerns from abdominal standpoint. Drain seems to be working well. Eventually drain the abdomen only intermittently. Discussed findings with patient and family. All questions were answered. Mention to Dr. Callahan that the chest x-ray shows the catheter to have been retracted slightly. The tip is now in the superior vena cava. If need be we can place a new port in the future. Please call with questions. Subjective Date of service: 04/30/17 Patient Reports: Positive: no new complaints Objective Vital Signs - 12hr 04/30/17 04/30/17 04/30/17 02:13 07:22 07:37 Temperature 98.7 F Pulse Rate 76 Respiratory 20 20 18 Rate Blood Pressure 131/79 O2 Sat by Pulse 95 Oximetry - General physical appearance no distress, no pain - Eyes normal occular movement - Respiratory normal expansion, normal respiratory effort - Abdomen soft, tender (appropriate incisional tenderness), distended (less), not guarding , not rigid - Neurologic normal coordination, normal sensation - Psychiatric oriented to time, oriented to person, oriented to place, speech is normal, memory intact - Labs 04/30/17 04:30 04/30/17 04:30 Diabetes panel 04/30/17 Range/Units 04:30 Sodium 139 (137-145) mmol/L Potassium 5.4 H D (3.6-5.0) mmol/L Chloride 99.3 (98-107) mmol/L Carbon Dioxide 26 (22-30) mmol/L BUN 12 (9-20) mg/dL Creatinine 1.3 (0.8-1.5) mg/dL Glucose 111 H (75-100) mg/dL Calcium 8.5 (8.4-10.2) mg/dL Calcium panel 04/30/17 Range/Units 04:30 Calcium 8.5 (8.4-10.2) mg/dL Pituitary panel 04/30/17 Range/Units 04:30 Sodium 139 (137-145) mmol/L Potassium 5.4 H D (3.6-5.0) mmol/L Chloride 99.3 (98-107) mmol/L Carbon Dioxide 26 (22-30) mmol/L BUN 12 (9-20) mg/dL Creatinine 1.3 (0.8-1.5) mg/dL Glucose 111 H (75-100) mg/dL Calcium 8.5 (8.4-10.2) mg/dL Adrenal panel 04/30/17 Range/Units 04:30 Sodium 139 (137-145) mmol/L Potassium 5.4 H D (3.6-5.0) mmol/L Chloride 99.3 (98-107) mmol/L Carbon Dioxide 26 (22-30) mmol/L BUN 12 (9-20) mg/dL Creatinine 1.3 (0.8-1.5) mg/dL Glucose 111 H (75-100) mg/dL Calcium 8.5 (8.4-10.2) mg/dL
[2017-04-30] MEDS: NORVASC PO SCH (11:42)
[2017-04-30] MEDS: PROTONIX PO SCH (11:43)
--- NOTE | 2017-04-30 12:49 | Progress Note ---
Assessment and Plan ascites r hydro for cysto and stent poss R perc all options dictated Subjective Date of service: 04/30/17 Principal diagnosis: colon obstruction r hydro Objective - Constitutional Vitals: Vital Signs - 12hr 04/30/17 04/30/17 04/30/17 02:13 07:22 07:37 Temperature 98.7 F Pulse Rate 76 Respiratory 20 20 18 Rate Blood Pressure 131/79 O2 Sat by Pulse 95 Oximetry 04/30/17 11:42 Temperature Pulse Rate 76 Respiratory Rate Blood Pressure 131/79 O2 Sat by Pulse Oximetry General appearance: Present: no acute distress - Respiratory Respiratory effort: normal - Gastrointestinal General gastrointestinal: Present: distended - Labs CBC & Chem 7: 04/30/17 04:30 04/30/17 04:30 Labs: Abnormal lab results 04/30/17 04/30/17 04/30/17 Range/Units 04:30 04:30 09:55 Hgb 11.7 L (11.8-15.2) gm/dl Hct 33.9 L (35.5-45.6) % MCHC 35 H (32-34) % RDW 12.8 L (13.2-15.2) % Potassium 5.4 H D (3.6-5.0) mmol/L Glucose 111 H (75-100) mg/dL HCG, Quant < 2 H (0-1) mIU/mL
--- NOTE | 2017-04-30 15:25 | Progress Note ---
Assessment and Plan Assessment and plan: Patient is a 62-year-old man who presented with abdominal pain and was found to have near obstructing mass near sigmoid colon unable to complete a colonoscopy 04/22/17 CT abd/pelvis w/ contrast Findings are highly suspicious for peritoneal carcinomatosis. Possible source of malignancy could be gastrointestinal. There is a large amount of ascites. There is no mechanical bowel obstruction. Liver and spleen lesions could also be metastatic in nature. There hydronephrosis of the right kidney. This could be due to distal ureteral stricture caused by extrinsic compression from pelvic mass. 04/23/17 Ultrasound guided Paracentesis removed a total of 1.5 Liters of fluid and 120cc was sent for lab evaluation 04/24/17 EGD showed gastritis, esophagitis and possible gastroparesis / Carcinomatosis with malignant ascites Adenocarcinomatosis, port to be placed for possible chemo. /Constipation due to Cancer with Colon stricture /Colon Cancer d/w Dr. Callahan, will need biopsy during surgery /partial colon obstruction due to obstructing Colon Cancer Diverting colostomy / DVT prophylaxis start sq heparin Significant findings during surgery yesterday, d.w Dr. Encarnacion DNR status discussed, pt thinking about signing the dnr. no Hospice at this time per Dr. Callahan, awaiting pathology for palliative chemo Urology is seeing for hydro History Interval history: Patient seen and examined. Follow up on constipation,, he went for surgery and cancer too extensive for resection. Overnight uneventful. Discussed with patient and his , parents at bedside Hospitalist Physical - Physical exam Narrative exam: GEN: WDWN, NAD, AWAKE, ALERT, ORIENTATED 3 HEENT: NCAT, EOMI, PERRL, OP Clear NECK: supple, no adenopathy, no thyromegaly, no JVD CVS/HEART: RRR, NORMAL S1S2, pulses present bilaterally CHEST/LUNGS: CTA B, Symmetrical chest expansion, good air entry bilaterally GI/Abdomen: soft, NT, good bowel sounds, no guarding or rebound /Bladder: no suprapubic tenderness, no CVA or paraspinal tenderness EXT/Skin: no c/c/e, no obvious rash MSK: FROM x 4 Neuro: CN 2-12 grossly intact, no new focal deficits Psych: calm - Constitutional Vitals: Temp Pulse Resp BP Pulse Ox 98.7 F 76 18 131/79 95 04/30/17 07:37 04/30/17 11:42 04/30/17 07:37 04/30/17 11:42 04/30/17 07:37 General appearance: Present: no acute distress Results - Labs CBC & Chem 7: 04/30/17 04:30 04/30/17 04:30 Labs: Laboratory Last Values WBC 8.0 K/mm3 (4.5-11.0) 04/30/17 04:30 RBC 3.69 M/mm3 (3.65-5.03) 04/30/17 04:30 Hgb 11.7 gm/dl (11.8-15.2) L 04/30/17 04:30 Hct 33.9 % (35.5-45.6) L 04/30/17 04:30 MCV 92 fl (84-94) 04/30/17 04:30 MCH 32 pg (28-32) 04/30/17 04:30 MCHC 35 % (32-34) H 04/30/17 04:30 RDW 12.8 % (13.2-15.2) L 04/30/17 04:30 Plt Count 339 K/mm3 (140-440) 04/30/17 04:30 Lymph % (Auto) 20.7 % (13.4-35.0) 04/26/17 06:47 [place] % (Auto) 11.1 % (0.0-7.3) H 04/26/17 06:47 Eos % (Auto) 3.1 % (0.0-4.3) 04/26/17 06:47 Baso % (Auto) 0.2 % (0.0-1.8) 04/26/17 06:47 Lymph # 1.4 K/mm3 (1.2-5.4) 04/26/17 06:47 [place] # 0.7 K/mm3 (0.0-0.8) 04/26/17 06:47 Eos # 0.2 K/mm3 (0.0-0.4) 04/26/17 06:47 Baso # 0.0 K/mm3 (0.0-0.1) 04/26/17 06:47 Seg Neutrophils % 64.9 % (40.0-70.0) 04/26/17 06:47 Seg Neutrophils # 4.4 K/mm3 (1.8-7.7) 04/26/17 06:47 PT 13.7 Sec. (12.2-14.9) 04/29/17 04:57 INR 1.00 (0.87-1.13) 04/29/17 04:57 APTT 38.6 Sec. (24.2-36.6) H 04/29/17 04:57 Sodium 139 mmol/L (137-145) 04/30/17 04:30 Potassium 5.4 mmol/L (3.6-5.0) H D 04/30/17 04:30 Chloride 99.3 mmol/L (98-107) 04/30/17 04:30 Carbon Dioxide 26 mmol/L (22-30) 04/30/17 04:30 Anion Gap 19 mmol/L 04/30/17 04:30 BUN 12 mg/dL (9-20) 04/30/17 04:30 Creatinine 1.3 mg/dL (0.8-1.5) 04/30/17 04:30 Estimated GFR > 60 ml/min 04/30/17 04:30 BUN/Creatinine Ratio 9 % 04/30/17 04:30 Glucose 111 mg/dL (75-100) H 04/30/17 04:30 Calcium 8.5 mg/dL (8.4-10.2) 04/30/17 04:30 Magnesium 1.70 mg/dL (1.7-2.3) 04/29/17 04:57 Total Bilirubin 0.40 mg/dL (0.1-1.2) 04/24/17 04:54 AST 23 units/L (5-40) 04/24/17 04:54 ALT 10 units/L (7-56) 04/24/17 04:54 Alkaline Phosphatase 57 units/L (35-129) 04/24/17 04:54 Total Protein 5.6 g/dL (6.3-8.2) L 04/24/17 04:54 Albumin 2.7 g/dL (3.9-5) L 04/24/17 04:54 Albumin/Globulin Ratio 0.9 % 04/24/17 04:54 Amylase 52 units/L (27-131) 04/22/17 15:51 Lipase 10 units/L (13-60) L 04/22/17 15:51 Carcinoembryonic Ag See scanned report 04/28/17 09:49 CA 19-9 Antigen 10 U/mL (<34) 04/23/17 12:47 Prostate Specific Ag 1.19 ng/mL (0.00-4.00) 04/28/17 09:49 HCG, Quant < 2 mIU/mL (0-1) H 04/30/17 09:55 Urine Color Yellow (Yellow) 04/22/17 23:14 Urine Turbidity Clear (Clear) 04/22/17 23:14 Urine pH 5.0 (5.0-7.0) 04/22/17 23:14 Ur Specific [place] 1.008 (1.003-1.030) 04/22/17 23:14 Urine Protein <15 mg/dl mg/dL (Negative) 04/22/17 23:14 Urine Glucose (UA) Neg mg/dL (Negative) 04/22/17 23:14 Urine Ketones Neg mg/dL (Negative) 04/22/17 23:14 Urine Blood Sm (Negative) 04/22/17 23:14 Urine Nitrite Neg (Negative) 04/22/17 23:14 Urine Bilirubin Neg (Negative) 04/22/17 23:14 Urine Urobilinogen < 2.0 mg/dL (<2.0) 04/22/17 23:14 Ur Leukocyte Esterase Neg (Negative) 04/22/17 23:14 Urine WBC (Auto) 1.0 /HPF (0.0-6.0) 04/22/17 23:14 Urine RBC (Auto) < 1.0 /HPF (0.0-6.0) 04/22/17 23:14 Urine Mucus Few /HPF 04/22/17 13:36
[2017-04-30] MEDS ORDERED: KIONEX PR ONE (16:00)
[2017-04-30] MEDS: HEPARIN SUB-Q SCH (23:07)
[2017-05-01] MEDS: DILAUDID IV PRN ×6 (01:15→21:58)
[2017-05-01 05:22] LABS: Hematocrit 34.6 % (35.5-45.6); Mean Corpuscular HGB Conc 35 % (32-34); Mean Corpuscular Hemoglobin 32 pg (28-32); Mean Corpuscular Volume 92 fl (84-94); Platelet Count 313 K/mm3 (140-440); Red Blood Count 3.77 M/mm3 (3.65-5.03); Red Cell Distribution Width 13.2 % (13.2-15.2)
[2017-05-01 05:41] LABS: BUN/Creatinine Ratio 9; Blood Urea Nitrogen 11 mg/dL (9-20); Calcium 8.1 mg/dL (8.4-10.2); Hemolysis Index 1
--- NOTE | 2017-05-01 08:48 | Consultation ---
HISTORY OF PRESENT ILLNESS: The patient is a 52-year-old gentleman who presented to the hospital over a week ago with umbilical hernia, abdominal pain. He has evidence of metastatic carcinomatosis and documented on pathology, cytology. He has right hydronephrosis, which was seen on CT scan on 04/22/2017. I discussed this with him and the entire family is present about proceeding with stenting or observing. Likely, he will need chemotherapy. We will try to preserve the kidney function if possible. Otherwise, if the stent is not possible, we will have a percutaneous nephrostomy. All implications discussed. Informed consent was obtained. PAST MEDICAL HISTORY: As mentioned above. PAST SURGICAL HISTORY: He had previous umbilical hernia surgery. No surgery, voiding freely. SOCIAL HISTORY: Smoker. FAMILY HISTORY: Noncontributory. ALLERGIES: Negative. MEDICATIONS: Tramadol. REVIEW OF SYSTEMS: Abdominal distention, weakness. PHYSICAL EXAMINATION: GENERAL: On exam, he is awake. He is in no distress. ABDOMEN: His abdomen is distended. There is a fluid shift. There is evidence of ascites. IMPRESSION: 1. Right hydronephrosis. 2. Metastatic adenocarcinoma. All options discussed regarding the hydronephrosis. We will proceed with a cystoscopy and stenting. JOB# [id number] MAYNOR/LAURA
[2017-05-01] MEDS: HEPARIN SUB-Q SCH ×2 (11:02→21:59)
[2017-05-01] MEDS: NACL 0.9% 1000 ML 1,000 ML IV SCH ×2 (11:03→22:36)
[2017-05-01] MEDS: NORVASC PO SCH (11:03)
[2017-05-01] MEDS: PROTONIX PO SCH (11:03)
--- NOTE | 2017-05-01 14:14 | Progress Note ---
Assessment and Plan - Patient Problems (1) Carcinomatosis Current Visit: Yes Status: Acute Plan to address problem: Patient stable at this time. s/p dx laparoscopy, biopsy, drain placement, port placement - POD#2. Will plan to remove dressings tomorrow and mignon in 10-14 days depending on if there is any ascites drainage from the incisions. Please call with questions. Subjective Date of service: 05/01/17 Patient Reports: Positive: no new complaints (Feels better that abdomen is less distended with fluid) Objective Vital Signs - 12hr 05/01/17 08:08 Temperature 98.5 F Pulse Rate 71 Respiratory 19 Rate Blood Pressure 146/93 O2 Sat by Pulse 97 Oximetry - General physical appearance no distress, no pain - Eyes normal occular movement - Respiratory normal expansion, normal respiratory effort - Abdomen soft, distended (mild), not guarding, not rigid, other (drain in place with serous fluid and old blood. Dressing dry) - Labs 05/01/17 04:51 05/01/17 04:51 Diabetes panel 05/01/17 Range/Units 04:51 Sodium 136 L (137-145) mmol/L Potassium 4.3 D (3.6-5.0) mmol/L Chloride 100.0 (98-107) mmol/L Carbon Dioxide 26 (22-30) mmol/L BUN 11 (9-20) mg/dL Creatinine 1.2 (0.8-1.5) mg/dL Glucose 139 H (75-100) mg/dL Calcium 8.1 L (8.4-10.2) mg/dL Calcium panel 05/01/17 Range/Units 04:51 Calcium 8.1 L (8.4-10.2) mg/dL Pituitary panel 05/01/17 Range/Units 04:51 Sodium 136 L (137-145) mmol/L Potassium 4.3 D (3.6-5.0) mmol/L Chloride 100.0 (98-107) mmol/L Carbon Dioxide 26 (22-30) mmol/L BUN 11 (9-20) mg/dL Creatinine 1.2 (0.8-1.5) mg/dL Glucose 139 H (75-100) mg/dL Calcium 8.1 L (8.4-10.2) mg/dL Adrenal panel 05/01/17 Range/Units 04:51 Sodium 136 L (137-145) mmol/L Potassium 4.3 D (3.6-5.0) mmol/L Chloride 100.0 (98-107) mmol/L Carbon Dioxide 26 (22-30) mmol/L BUN 11 (9-20) mg/dL Creatinine 1.2 (0.8-1.5) mg/dL Glucose 139 H (75-100) mg/dL Calcium 8.1 L (8.4-10.2) mg/dL
--- NOTE | 2017-05-01 14:18 | Progress Note ---
Assessment and Plan Assessment and plan: Patient is a 62-year-old man who presented with abdominal pain and was found to have near obstructing mass near sigmoid colon unable to complete a colonoscopy 04/22/17 CT abd/pelvis w/ contrast Findings are highly suspicious for peritoneal carcinomatosis. Possible source of malignancy could be gastrointestinal. There is a large amount of ascites. There is no mechanical bowel obstruction. Liver and spleen lesions could also be metastatic in nature. There hydronephrosis of the right kidney. This could be due to distal ureteral stricture caused by extrinsic compression from pelvic mass. 04/23/17 Ultrasound guided Paracentesis removed a total of 1.5 Liters of fluid and 120cc was sent for lab evaluation 04/24/17 EGD showed gastritis, esophagitis and possible gastroparesis / Carcinomatosis with malignant ascites Adenocarcinomatosis, port to be placed for possible chemo. /Constipation due to Cancer with Colon stricture /Colon Cancer d/w Dr. Callahan, will need biopsy during surgery /partial colon obstruction due to obstructing Colon Cancer Diverting colostomy / DVT prophylaxis start sq heparin Significant findings during surgery yesterday, d.w Dr. Encarnacion DNR status discussed, pt thinking about signing the dnr. no Hospice at this time per Dr. Callahan, awaiting pathology for palliative chemo Urology is seeing for hydro History Interval history: Patient seen and examined. Follow up on constipation,, he went for surgery and cancer too extensive for resection. Overnight uneventful. Discussed with patient and his , parents at bedside Hospitalist Physical - Physical exam Narrative exam: GEN: WDWN, NAD, AWAKE, ALERT, ORIENTATED 3 HEENT: NCAT, EOMI, PERRL, OP Clear NECK: supple, no adenopathy, no thyromegaly, no JVD CVS/HEART: RRR, NORMAL S1S2, pulses present bilaterally CHEST/LUNGS: CTA B, Symmetrical chest expansion, good air entry bilaterally GI/Abdomen: soft, NT, good bowel sounds, no guarding or rebound /Bladder: no suprapubic tenderness, no CVA or paraspinal tenderness EXT/Skin: no c/c/e, no obvious rash MSK: FROM x 4 Neuro: CN 2-12 grossly intact, no new focal deficits Psych: calm - Constitutional Vitals: Temp Pulse Resp BP Pulse Ox 98.5 F 71 19 146/93 97 05/01/17 08:08 05/01/17 08:08 05/01/17 08:08 05/01/17 08:08 05/01/17 08:08 General appearance: Present: no acute distress Results - Labs CBC & Chem 7: 05/01/17 04:51 05/01/17 04:51 Labs: Laboratory Last Values WBC 6.4 K/mm3 (4.5-11.0) 05/01/17 04:51 RBC 3.77 M/mm3 (3.65-5.03) 05/01/17 04:51 Hgb 12.0 gm/dl (11.8-15.2) 05/01/17 04:51 Hct 34.6 % (35.5-45.6) L 05/01/17 04:51 MCV 92 fl (84-94) 05/01/17 04:51 MCH 32 pg (28-32) 05/01/17 04:51 MCHC 35 % (32-34) H 05/01/17 04:51 RDW 13.2 % (13.2-15.2) 05/01/17 04:51 Plt Count 313 K/mm3 (140-440) 05/01/17 04:51 Lymph % (Auto) 20.7 % (13.4-35.0) 04/26/17 06:47 [place] % (Auto) 11.1 % (0.0-7.3) H 04/26/17 06:47 Eos % (Auto) 3.1 % (0.0-4.3) 04/26/17 06:47 Baso % (Auto) 0.2 % (0.0-1.8) 04/26/17 06:47 Lymph # 1.4 K/mm3 (1.2-5.4) 04/26/17 06:47 [place] # 0.7 K/mm3 (0.0-0.8) 04/26/17 06:47 Eos # 0.2 K/mm3 (0.0-0.4) 04/26/17 06:47 Baso # 0.0 K/mm3 (0.0-0.1) 04/26/17 06:47 Seg Neutrophils % 64.9 % (40.0-70.0) 04/26/17 06:47 Seg Neutrophils # 4.4 K/mm3 (1.8-7.7) 04/26/17 06:47 PT 13.7 Sec. (12.2-14.9) 04/29/17 04:57 INR 1.00 (0.87-1.13) 04/29/17 04:57 APTT 38.6 Sec. (24.2-36.6) H 04/29/17 04:57 Sodium 136 mmol/L (137-145) L 05/01/17 04:51 Potassium 4.3 mmol/L (3.6-5.0) D 05/01/17 04:51 Chloride 100.0 mmol/L (98-107) 05/01/17 04:51 Carbon Dioxide 26 mmol/L (22-30) 05/01/17 04:51 Anion Gap 14 mmol/L 05/01/17 04:51 BUN 11 mg/dL (9-20) 05/01/17 04:51 Creatinine 1.2 mg/dL (0.8-1.5) 05/01/17 04:51 Estimated GFR > 60 ml/min 05/01/17 04:51 BUN/Creatinine Ratio 9 % 05/01/17 04:51 Glucose 139 mg/dL (75-100) H 05/01/17 04:51 Calcium 8.1 mg/dL (8.4-10.2) L 05/01/17 04:51 Magnesium 1.70 mg/dL (1.7-2.3) 04/29/17 04:57 Total Bilirubin 0.40 mg/dL (0.1-1.2) 04/24/17 04:54 AST 23 units/L (5-40) 04/24/17 04:54 ALT 10 units/L (7-56) 04/24/17 04:54 Alkaline Phosphatase 57 units/L (35-129) 04/24/17 04:54 Total Protein 5.6 g/dL (6.3-8.2) L 04/24/17 04:54 Albumin 2.7 g/dL (3.9-5) L 04/24/17 04:54 Albumin/Globulin Ratio 0.9 % 04/24/17 04:54 Amylase 52 units/L (27-131) 04/22/17 15:51 Lipase 10 units/L (13-60) L 04/22/17 15:51 Carcinoembryonic Ag See scanned report 04/28/17 09:49 CA 19-9 Antigen 10 U/mL (<34) 04/23/17 12:47 Prostate Specific Ag 1.19 ng/mL (0.00-4.00) 04/28/17 09:49 HCG, Quant < 2 mIU/mL (0-1) H 04/30/17 09:55 Urine Color Yellow (Yellow) 04/22/17 23:14 Urine Turbidity Clear (Clear) 04/22/17 23:14 Urine pH 5.0 (5.0-7.0) 04/22/17 23:14 Ur Specific [place] 1.008 (1.003-1.030) 04/22/17 23:14 Urine Protein <15 mg/dl mg/dL (Negative) 04/22/17 23:14 Urine Glucose (UA) Neg mg/dL (Negative) 04/22/17 23:14 Urine Ketones Neg mg/dL (Negative) 04/22/17 23:14 Urine Blood Sm (Negative) 04/22/17 23:14 Urine Nitrite Neg (Negative) 04/22/17 23:14 Urine Bilirubin Neg (Negative) 04/22/17 23:14 Urine Urobilinogen < 2.0 mg/dL (<2.0) 04/22/17 23:14 Ur Leukocyte Esterase Neg (Negative) 04/22/17 23:14 Urine WBC (Auto) 1.0 /HPF (0.0-6.0) 04/22/17 23:14 Urine RBC (Auto) < 1.0 /HPF (0.0-6.0) 04/22/17 23:14 Urine Mucus Few /HPF 04/22/17 13:36
[2017-05-01] MEDS: ZOFRAN IV PRN (18:14)
[2017-05-02] MEDS: DILAUDID IV PRN ×6 (02:22→23:48)
[2017-05-02 05:24] LABS: Hematocrit 33.9 % (35.5-45.6); Mean Corpuscular HGB Conc 35 % (32-34); Mean Corpuscular Hemoglobin 32 pg (28-32); Mean Corpuscular Volume 91 fl (84-94); Platelet Count 288 K/mm3 (140-440); Red Blood Count 3.72 M/mm3 (3.65-5.03); Red Cell Distribution Width 12.9 % (13.2-15.2)
[2017-05-02 05:48] LABS: BUN/Creatinine Ratio 8; Blood Urea Nitrogen 9 mg/dL (9-20); Calcium 8.3 mg/dL (8.4-10.2); Hemolysis Index 1
[2017-05-02] MEDS: HEPARIN SUB-Q SCH ×2 (09:57→22:47)
[2017-05-02] MEDS: PROTONIX PO SCH (09:57)
[2017-05-02] MEDS: NORVASC PO SCH (09:57)
[2017-05-02] MEDS: NACL 0.9% 1000 ML 1,000 ML IV SCH ×2 (11:16→23:48)
--- NOTE | 2017-05-02 11:35 | Progress Note ---
Assessment and Plan - Patient Problems (1) Carcinomatosis Current Visit: Yes Status: Acute Plan to address problem: Patient stable at this time. s/p dx laparoscopy, biopsy, drain placement, port placement - POD#3. Dressings removed today. All incisions site clean and dry. Drain working with primarily serous fluid coming out. Ingris out in 10-14 days depending on if there is any ascites drainage from the incisions. Please call with questions. Subjective Date of service: 05/02/17 Patient Reports: Positive: no new complaints (feeling a little bloated today) Objective Vital Signs - 12hr 05/02/17 07:58 Temperature 98.6 F Pulse Rate 76 Respiratory 20 Rate Blood Pressure 141/90 O2 Sat by Pulse 98 Oximetry - General physical appearance no distress, no pain, other (appears weaker today) - Respiratory normal expansion, normal respiratory effort - Abdomen soft, distended (mild), not guarding, not rigid, surgical scars (C/D/I - all dressings removed. ) - Labs 05/02/17 04:44 05/02/17 04:44 Diabetes panel 05/02/17 Range/Units 04:44 Sodium 135 L (137-145) mmol/L Potassium 4.2 (3.6-5.0) mmol/L Chloride 97.2 L (98-107) mmol/L Carbon Dioxide 27 (22-30) mmol/L BUN 9 (9-20) mg/dL Creatinine 1.1 (0.8-1.5) mg/dL Glucose 103 H (75-100) mg/dL Calcium 8.3 L (8.4-10.2) mg/dL Calcium panel 05/02/17 Range/Units 04:44 Calcium 8.3 L (8.4-10.2) mg/dL Pituitary panel 05/02/17 Range/Units 04:44 Sodium 135 L (137-145) mmol/L Potassium 4.2 (3.6-5.0) mmol/L Chloride 97.2 L (98-107) mmol/L Carbon Dioxide 27 (22-30) mmol/L BUN 9 (9-20) mg/dL Creatinine 1.1 (0.8-1.5) mg/dL Glucose 103 H (75-100) mg/dL Calcium 8.3 L (8.4-10.2) mg/dL Adrenal panel 02/18/18 Range/Units 04:44 Sodium 135 L (137-145) mmol/L Potassium 4.2 (3.6-5.0) mmol/L Chloride 97.2 L (98-107) mmol/L Carbon Dioxide 27 (22-30) mmol/L BUN 9 (9-20) mg/dL Creatinine 1.1 (0.8-1.5) mg/dL Glucose 103 H (75-100) mg/dL Calcium 8.3 L (8.4-10.2) mg/dL
--- NOTE | 2017-05-02 12:35 | Hem/Onc Progress Note ---
Assessment and Plan 1. diffuse peritoneal adenocarcinoma- planning palliative chemotherapy under the care of Dr Callahan. HCG negative, CEA pending. Cystoscopy tomorrow. Subjective Date of service: 05/02/17 Interval history: abdominal pain is controlled, no new complaints Objective - Constitutional Vitals: Last Vital Signs Temp 98.6 F 05/02/17 07:58 Pulse 76 05/02/17 07:58 Resp 20 05/02/17 07:58 BP 141/90 05/02/17 07:58 Pulse Ox 98 05/02/17 07:58 General appearance: no acute distress - Neck Neck: supple - Respiratory Respiratory effort: Positive: normal Respiratory: bilateral: CTA - Cardiovascular Rhythm: regular - Gastrointestinal General gastrointestinal: Present: distended (incision c/d/i, drain in place) - Labs Lab Results: Laboratory Results - last 24 hr 05/02/17 05/02/17 04:44 04:44 WBC 6.8 RBC 3.72 Hgb 12.0 Hct 33.9 L MCV 91 MCH 32 MCHC 35 H RDW 12.9 L Plt Count 288 Sodium 135 L Potassium 4.2 Chloride 97.2 L Carbon Dioxide 27 Anion Gap 15 BUN 9 Creatinine 1.1 Estimated GFR > 60 BUN/Creatinine Ratio 8 Glucose 103 H Calcium 8.3 L
--- NOTE | 2017-05-02 14:56 | Progress Note ---
Assessment and Plan Assessment and plan: Patient is a 62-year-old man who presented with abdominal pain and was found to have near obstructing mass near sigmoid colon unable to complete a colonoscopy 04/22/17 CT abd/pelvis w/ contrast Findings are highly suspicious for peritoneal carcinomatosis. Possible source of malignancy could be gastrointestinal. There is a large amount of ascites. There is no mechanical bowel obstruction. Liver and spleen lesions could also be metastatic in nature. There hydronephrosis of the right kidney. This could be due to distal ureteral stricture caused by extrinsic compression from pelvic mass. 04/23/17 Ultrasound guided Paracentesis removed a total of 1.5 Liters of fluid and 120cc was sent for lab evaluation 04/24/17 EGD showed gastritis, esophagitis and possible gastroparesis / Carcinomatosis with malignant ascites Adenocarcinomatosis, port to be placed for possible chemo. /Constipation due to Cancer with Colon stricture /Colon Cancer d/w Dr. Callahan, will need biopsy during surgery /partial colon obstruction due to obstructing Colon Cancer Diverting colostomy / DVT prophylaxis start sq heparin Significant findings during surgery yesterday, d.w Dr. Encarnacion DNR status discussed, pt thinking about signing the dnr. no Hospice at this time per Dr. Callahan, awaiting pathology for palliative chemo Urology is seeing for hydro History Interval history: Patient seen and examined. Follow up on constipation,, he went for surgery and cancer too extensive for resection. Overnight uneventful. Discussed with patient and his , parents at bedside Hospitalist Physical - Physical exam Narrative exam: GEN: WDWN, NAD, AWAKE, ALERT, ORIENTATED 3 HEENT: NCAT, EOMI, PERRL, OP Clear NECK: supple, no adenopathy, no thyromegaly, no JVD CVS/HEART: RRR, NORMAL S1S2, pulses present bilaterally CHEST/LUNGS: CTA B, Symmetrical chest expansion, good air entry bilaterally GI/Abdomen: soft, NT, good bowel sounds, no guarding or rebound /Bladder: no suprapubic tenderness, no CVA or paraspinal tenderness EXT/Skin: no c/c/e, no obvious rash MSK: FROM x 4 Neuro: CN 2-12 grossly intact, no new focal deficits Psych: calm - Constitutional Vitals: Temp Pulse Resp BP Pulse Ox 98.6 F 76 20 141/90 98 05/02/17 07:58 05/02/17 07:58 05/02/17 07:58 05/02/17 07:58 05/02/17 07:58 General appearance: Present: no acute distress Results - Labs CBC & Chem 7: 05/02/17 04:44 05/02/17 04:44 Labs: Laboratory Last Values WBC 6.8 K/mm3 (4.5-11.0) 05/02/17 04:44 RBC 3.72 M/mm3 (3.65-5.03) 05/02/17 04:44 Hgb 12.0 gm/dl (11.8-15.2) 05/02/17 04:44 Hct 33.9 % (35.5-45.6) L 05/02/17 04:44 MCV 91 fl (84-94) 05/02/17 04:44 MCH 32 pg (28-32) 05/02/17 04:44 MCHC 35 % (32-34) H 05/02/17 04:44 RDW 12.9 % (13.2-15.2) L 05/02/17 04:44 Plt Count 288 K/mm3 (140-440) 05/02/17 04:44 Lymph % (Auto) 20.7 % (13.4-35.0) 04/26/17 06:47 [place] % (Auto) 11.1 % (0.0-7.3) H 04/26/17 06:47 Eos % (Auto) 3.1 % (0.0-4.3) 04/26/17 06:47 Baso % (Auto) 0.2 % (0.0-1.8) 04/26/17 06:47 Lymph # 1.4 K/mm3 (1.2-5.4) 04/26/17 06:47 [place] # 0.7 K/mm3 (0.0-0.8) 04/26/17 06:47 Eos # 0.2 K/mm3 (0.0-0.4) 04/26/17 06:47 Baso # 0.0 K/mm3 (0.0-0.1) 04/26/17 06:47 Seg Neutrophils % 64.9 % (40.0-70.0) 04/26/17 06:47 Seg Neutrophils # 4.4 K/mm3 (1.8-7.7) 04/26/17 06:47 PT 13.7 Sec. (12.2-14.9) 04/29/17 04:57 INR 1.00 (0.87-1.13) 04/29/17 04:57 APTT 38.6 Sec. (24.2-36.6) H 04/29/17 04:57 Sodium 135 mmol/L (137-145) L 05/02/17 04:44 Potassium 4.2 mmol/L (3.6-5.0) 05/02/17 04:44 Chloride 97.2 mmol/L (98-107) L 05/02/17 04:44 Carbon Dioxide 27 mmol/L (22-30) 05/02/17 04:44 Anion Gap 15 mmol/L 05/02/17 04:44 BUN 9 mg/dL (9-20) 05/02/17 04:44 Creatinine 1.1 mg/dL (0.8-1.5) 05/02/17 04:44 Estimated GFR > 60 ml/min 05/02/17 04:44 BUN/Creatinine Ratio 8 % 05/02/17 04:44 Glucose 103 mg/dL (75-100) H 05/02/17 04:44 Calcium 8.3 mg/dL (8.4-10.2) L 05/02/17 04:44 Magnesium 1.70 mg/dL (1.7-2.3) 04/29/17 04:57 Total Bilirubin 0.40 mg/dL (0.1-1.2) 04/24/17 04:54 AST 23 units/L (5-40) 04/24/17 04:54 ALT 10 units/L (7-56) 04/24/17 04:54 Alkaline Phosphatase 57 units/L (35-129) 04/24/17 04:54 Total Protein 5.6 g/dL (6.3-8.2) L 04/24/17 04:54 Albumin 2.7 g/dL (3.9-5) L 04/24/17 04:54 Albumin/Globulin Ratio 0.9 % 04/24/17 04:54 Amylase 52 units/L (27-131) 04/22/17 15:51 Lipase 10 units/L (13-60) L 04/22/17 15:51 Carcinoembryonic Ag See scanned report 04/28/17 09:49 CA 19-9 Antigen 10 U/mL (<34) 04/23/17 12:47 Prostate Specific Ag 1.19 ng/mL (0.00-4.00) 04/28/17 09:49 HCG, Quant < 2 mIU/mL (0-1) H 04/30/17 09:55 Urine Color Yellow (Yellow) 04/22/17 23:14 Urine Turbidity Clear (Clear) 04/22/17 23:14 Urine pH 5.0 (5.0-7.0) 04/22/17 23:14 Ur Specific [place] 1.008 (1.003-1.030) 04/22/17 23:14 Urine Protein <15 mg/dl mg/dL (Negative) 04/22/17 23:14 Urine Glucose (UA) Neg mg/dL (Negative) 04/22/17 23:14 Urine Ketones Neg mg/dL (Negative) 04/22/17 23:14 Urine Blood Sm (Negative) 04/22/17 23:14 Urine Nitrite Neg (Negative) 04/22/17 23:14 Urine Bilirubin Neg (Negative) 04/22/17 23:14 Urine Urobilinogen < 2.0 mg/dL (<2.0) 04/22/17 23:14 Ur Leukocyte Esterase Neg (Negative) 04/22/17 23:14 Urine WBC (Auto) 1.0 /HPF (0.0-6.0) 04/22/17 23:14 Urine RBC (Auto) < 1.0 /HPF (0.0-6.0) 04/22/17 23:14 Urine Mucus Few /HPF 04/22/17 13:36
[2017-05-02] MEDS: ZOFRAN IV PRN (15:44)
[2017-05-03] MEDS: DILAUDID IV PRN ×4 (03:38→23:03)
[2017-05-03 05:11] LABS: Hematocrit 34.1 % (35.5-45.6); Hemoglobin 11.7 gm/dl (11.8-15.2); Mean Corpuscular HGB Conc 34 % (32-34); Mean Corpuscular Hemoglobin 31 pg (28-32); Mean Corpuscular Volume 91 fl (84-94); Platelet Count 287 K/mm3 (140-440); Red Blood Count 3.74 M/mm3 (3.65-5.03); Red Cell Distribution Width 12.9 % (13.2-15.2)
[2017-05-03 05:18] LABS: BUN/Creatinine Ratio 7; Blood Urea Nitrogen 7 mg/dL (9-20); Calcium 8.5 mg/dL (8.4-10.2); Hemolysis Index 1
[2017-05-03] MEDS: ZOFRAN IV PRN ×2 (09:09→23:03)
--- NOTE | 2017-05-03 09:29 | Hem/Onc Progress Note ---
Assessment and Plan Had a lengthy discussion with the patient and his family members were present. Prognosis is poor. Awaiting final pathology. Once pathology is back can decide about the type of chemotherapy which is the only option here. Chemotherapy will be palliative We will also check hCG and alpha-fetoprotein Subjective Date of service: 05/03/17 Interval history: Findings during operation noted. Case was discussed with Dr. mckeon intraoperatively. The patient has a very extensive involvement of the whole abdomen with bowels socked in with the tumor making any form of ostomy impossible. Biopsy was taken. Port was placed. Patient's PSA within normal limits. Patient feels fair. Pain there but controlled. Had a bowel movement. For cystoscopy today. Objective - Constitutional Vitals: Last Vital Signs Temp 98.6 F 05/03/17 08:27 Pulse 67 05/03/17 08:27 Resp 20 05/03/17 08:50 BP 145/88 05/03/17 08:27 Pulse Ox 98 05/03/17 08:27 Pain Intensity (0-10): denies any pain General appearance: mild distress - Neck Neck: supple - Respiratory Respiratory effort: Positive: normal Respiratory: bilateral: CTA - Cardiovascular Rhythm: regular - Gastrointestinal General gastrointestinal: Present: soft - Labs Lab Results: Laboratory Results - last 24 hr 05/03/17 05/03/17 04:31 04:31 WBC 6.5 RBC 3.74 Hgb 11.7 L Hct 34.1 L MCV 91 MCH 31 MCHC 34 RDW 12.9 L Plt Count 287 Sodium 139 Potassium 4.2 Chloride 99.9 Carbon Dioxide 26 Anion Gap 17 BUN 7 L Creatinine 1.0 Estimated GFR > 60 BUN/Creatinine Ratio 7 Glucose 139 H Calcium 8.5
[2017-05-03] MEDS: HEPARIN SUB-Q SCH ×2 (10:00→21:15)
[2017-05-03] MEDS: PROTONIX PO SCH (10:00)
[2017-05-03] MEDS: NORVASC PO SCH (10:00)
[2017-05-03] MEDS ORDERED: NACL 0.9% 1000 ML 1,000 ML ONE (12:34)
[2017-05-03] MEDS ORDERED: NACL 0.9% 1000 ML 1,000 ML IV SCH (13:00)
[2017-05-03] MEDS ORDERED: DILAUDID IV PRN (13:25)
--- NOTE | 2017-05-03 13:29 | Anesthesia Consultation ---
Anesthesia Consult and Med Hx Date of service: 05/03/17 - Airway Anesthetic Teeth Evaluation: Good ROM Head & Neck: Adequate Mental/Hyoid Distance: Adequate Mallampati Class: Class II Intubation Access Assessment: Probably Good - Pulmonary Exam CTA: Yes - Cardiac Exam Cardiac Exam: RRR - Pre-Operative Health Status ASA Pre-Surgery Classification: ASA3 Proposed Anesthetic Plan: General - Pulmonary Hx Smoking: Yes Hx Asthma: No COPD: No Hx Pneumonia: No - Cardiovascular System Hx Hypertension: Yes (New dx ) - Gastrointestinal Hx Gastroesophageal Reflux Disease: Yes - Endocrine Hx End Stage Renal Disease: No - Other Systems Hx Cancer: Yes (metastatic adenocarcinoma )
--- NOTE | 2017-05-03 13:30 | Anesthesia Day of Surgery ---
Anesthesia Day of Surgery - Day of Surgery Patient Examined: Yes Patient H&P Reviewed: Yes Patient is NPO: Yes
--- NOTE | 2017-05-03 13:52 | Progress Note ---
Assessment and Plan Assessment and plan: Patient is a 62-year-old man who presented with abdominal pain and was found to have near obstructing mass near sigmoid colon unable to complete a colonoscopy 04/22/17 CT abd/pelvis w/ contrast Findings are highly suspicious for peritoneal carcinomatosis. Possible source of malignancy could be gastrointestinal. There is a large amount of ascites. There is no mechanical bowel obstruction. Liver and spleen lesions could also be metastatic in nature. There hydronephrosis of the right kidney. This could be due to distal ureteral stricture caused by extrinsic compression from pelvic mass. 04/23/17 Ultrasound guided Paracentesis removed a total of 1.5 Liters of fluid and 120cc was sent for lab evaluation 04/24/17 EGD showed gastritis, esophagitis and possible gastroparesis / Carcinomatosis with malignant ascites Adenocarcinomatosis, port to be placed for possible chemo. /Constipation due to Cancer with Colon stricture /Colon Cancer d/w Dr. Callahan, will need biopsy during surgery /partial colon obstruction due to obstructing Colon Cancer Diverting colostomy / DVT prophylaxis start sq heparin Significant findings during surgery yesterday, d.w Dr. Encarnacion DNR status discussed, pt thinking about signing the dnr. no Hospice at this time per Dr. Callahan, awaiting pathology for palliative chemo Urology is seeing for hydro History Interval history: Patient seen and examined. Follow up on constipation,, he went for surgery and cancer too extensive for resection. Overnight uneventful. Discussed with patient and his , parents at bedside Hospitalist Physical - Physical exam Narrative exam: GEN: WDWN, NAD, AWAKE, ALERT, ORIENTATED 3 HEENT: NCAT, EOMI, PERRL, OP Clear NECK: supple, no adenopathy, no thyromegaly, no JVD CVS/HEART: RRR, NORMAL S1S2, pulses present bilaterally CHEST/LUNGS: CTA B, Symmetrical chest expansion, good air entry bilaterally GI/Abdomen: soft, NT, good bowel sounds, no guarding or rebound /Bladder: no suprapubic tenderness, no CVA or paraspinal tenderness EXT/Skin: no c/c/e, no obvious rash MSK: FROM x 4 Neuro: CN 2-12 grossly intact, no new focal deficits Psych: calm - Constitutional Vitals: Temp Pulse Resp BP Pulse Ox 98.2 F 61 20 139/80 98 05/03/17 12:20 05/03/17 12:20 05/03/17 12:20 05/03/17 12:20 05/03/17 12:20 General appearance: Present: no acute distress Results - Labs CBC & Chem 7: 05/03/17 04:31 05/03/17 04:31 Labs: Laboratory Last Values WBC 6.5 K/mm3 (4.5-11.0) 05/03/17 04:31 RBC 3.74 M/mm3 (3.65-5.03) 05/03/17 04:31 Hgb 11.7 gm/dl (11.8-15.2) L 05/03/17 04:31 Hct 34.1 % (35.5-45.6) L 05/03/17 04:31 MCV 91 fl (84-94) 05/03/17 04:31 MCH 31 pg (28-32) 05/03/17 04:31 MCHC 34 % (32-34) 05/03/17 04:31 RDW 12.9 % (13.2-15.2) L 05/03/17 04:31 Plt Count 287 K/mm3 (140-440) 05/03/17 04:31 Lymph % (Auto) 20.7 % (13.4-35.0) 04/26/17 06:47 [place] % (Auto) 11.1 % (0.0-7.3) H 04/26/17 06:47 Eos % (Auto) 3.1 % (0.0-4.3) 04/26/17 06:47 Baso % (Auto) 0.2 % (0.0-1.8) 04/26/17 06:47 Lymph # 1.4 K/mm3 (1.2-5.4) 04/26/17 06:47 [place] # 0.7 K/mm3 (0.0-0.8) 04/26/17 06:47 Eos # 0.2 K/mm3 (0.0-0.4) 04/26/17 06:47 Baso # 0.0 K/mm3 (0.0-0.1) 04/26/17 06:47 Seg Neutrophils % 64.9 % (40.0-70.0) 04/26/17 06:47 Seg Neutrophils # 4.4 K/mm3 (1.8-7.7) 04/26/17 06:47 PT 13.7 Sec. (12.2-14.9) 04/29/17 04:57 INR 1.00 (0.87-1.13) 04/29/17 04:57 APTT 38.6 Sec. (24.2-36.6) H 04/29/17 04:57 Sodium 139 mmol/L (137-145) 05/03/17 04:31 Potassium 4.2 mmol/L (3.6-5.0) 05/03/17 04:31 Chloride 99.9 mmol/L (98-107) 05/03/17 04:31 Carbon Dioxide 26 mmol/L (22-30) 05/03/17 04:31 Anion Gap 17 mmol/L 05/03/17 04:31 BUN 7 mg/dL (9-20) L 05/03/17 04:31 Creatinine 1.0 mg/dL (0.8-1.5) 05/03/17 04:31 Estimated GFR > 60 ml/min 05/03/17 04:31 BUN/Creatinine Ratio 7 % 05/03/17 04:31 Glucose 139 mg/dL (75-100) H 05/03/17 04:31 Calcium 8.5 mg/dL (8.4-10.2) 05/03/17 04:31 Magnesium 1.70 mg/dL (1.7-2.3) 04/29/17 04:57 Total Bilirubin 0.40 mg/dL (0.1-1.2) 04/24/17 04:54 AST 23 units/L (5-40) 04/24/17 04:54 ALT 10 units/L (7-56) 04/24/17 04:54 Alkaline Phosphatase 57 units/L (35-129) 04/24/17 04:54 Total Protein 5.6 g/dL (6.3-8.2) L 04/24/17 04:54 Albumin 2.7 g/dL (3.9-5) L 04/24/17 04:54 Albumin/Globulin Ratio 0.9 % 04/24/17 04:54 Amylase 52 units/L (27-131) 04/22/17 15:51 Lipase 10 units/L (13-60) L 04/22/17 15:51 Carcinoembryonic Ag See scanned report 04/28/17 09:49 CA 19-9 Antigen 10 U/mL (<34) 04/23/17 12:47 Prostate Specific Ag 1.19 ng/mL (0.00-4.00) 04/28/17 09:49 HCG, Quant < 2 mIU/mL (0-1) H 04/30/17 09:55 Urine Color Yellow (Yellow) 04/22/17 23:14 Urine Turbidity Clear (Clear) 04/22/17 23:14 Urine pH 5.0 (5.0-7.0) 04/22/17 23:14 Ur Specific [place] 1.008 (1.003-1.030) 04/22/17 23:14 Urine Protein <15 mg/dl mg/dL (Negative) 04/22/17 23:14 Urine Glucose (UA) Neg mg/dL (Negative) 04/22/17 23:14 Urine Ketones Neg mg/dL (Negative) 04/22/17 23:14 Urine Blood Sm (Negative) 04/22/17 23:14 Urine Nitrite Neg (Negative) 04/22/17 23:14 Urine Bilirubin Neg (Negative) 04/22/17 23:14 Urine Urobilinogen < 2.0 mg/dL (<2.0) 04/22/17 23:14 Ur Leukocyte Esterase Neg (Negative) 04/22/17 23:14 Urine WBC (Auto) 1.0 /HPF (0.0-6.0) 04/22/17 23:14 Urine RBC (Auto) < 1.0 /HPF (0.0-6.0) 04/22/17 23:14 Urine Mucus Few /HPF 04/22/17 13:36
[2017-05-03] MEDS ORDERED: ANCEF/STERILE WATER 2 GM/20 ML IV NR (14:00)
[2017-05-03] MEDS ORDERED: SUBLIMAZE ONE (14:12)
[2017-05-03] MEDS ORDERED: ZOFRAN ONE (14:26)
[2017-05-03] MEDS ORDERED: XYLOCAINE MPF 2% ONE (14:29)
[2017-05-03] MEDS ORDERED: QUELICIN ONE (14:29)
[2017-05-03] MEDS ORDERED: ROBINUL ONE ×2 (14:29→14:49)
[2017-05-03] MEDS ORDERED: NEO SYNEPHRINE/NS Syringe(OR USE) IV ONE (14:30)
[2017-05-03] MEDS ORDERED: DIPRIVAN 10 MG/ML IV ONE (14:30)
[2017-05-03] MEDS ORDERED: DECADRON ONE (14:35)
[2017-05-03] MEDS ORDERED: WATER FOR IRRIG STERILE IR ONE (15:17)
--- NOTE | 2017-05-03 17:34 | Post Operative Note ---
Date of procedure: 05/03/17 Pre-op diagnosis: hydro Post-op diagnosis: same Findings: possible bladder nodules bilat hydro Procedure: cysto rpgs stents Anesthesia: GETA Surgeon: JESSICA HUMPHREY Estimated blood loss: none Pathology: list (bladder) Specimen disposition: to lab Condition: stable Disposition: PACU
[2017-05-03] MEDS: NACL 0.9% 1000 ML 1,000 ML IV SCH (19:58)
--- NOTE | 2017-05-03 20:21 | Operative Report ---
PREOPERATIVE DIAGNOSES: Metastatic colon cancer with ascites, bilateral ureteral obstruction. POSTOPERATIVE DIAGNOSES: Metastatic colon cancer with ascites, bilateral ureteral obstruction, much more in the right than the left with bladder nodules. PROCEDURES: Cystoscopy, bladder biopsy, fulguration, bilateral retrograde with bilateral stent insertion. SURGEON: Ravindra Monroe M.D. ANESTHESIA: General. FINDINGS: This is a gentleman with severe right hydro seen about 10 days ago. He is due for chemotherapy. We will try to preserve the function on the right side. He has metastatic colon cancer. DESCRIPTION OF PROCEDURE: The patient was brought to the operating room and placed on the operating table. Following induction of anesthesia, placed in lithotomy position, prepped and draped in usual sterile fashion. Cystourethroscopy showed nodularity of the posterior wall of the bladder, more on the right than the left. There were biopsied and fulgurated. These were extrinsic, so it may be just extrinsic compression from nodularities. 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 We had a lot of trouble trying to get a wire up the right side, but with some dilatation, we got a wire up and were able to place a 5-Australian double J. Whether this will drain adequately, I do not know, he still may need a percutaneous nephrostomy. On the left side, we had a little better chance and success straightening out the ureter, but there was still some kinking where there was likely tumor in the pelvis. The patient tolerated the procedure well. A 6-Australian double J coiled on the left and 5-Australian on the right, both 24 cm, brought to recovery room with Fung catheter in stable condition. JOB# [id number] MAYNOR/LAURA
[2017-05-04] MEDS: DILAUDID IV PRN ×3 (03:45→11:56)
--- NOTE | 2017-05-04 07:23 | Fluoroscopy Report ---
FLUOROSCOPY RETROGRADE UROGRAPHY History: Pelvic mass, bilateral hydronephrosis, colon cancer. Findings: Fluoroscopy was provided by radiology during retrograde urography by the urologist. 6 fluoroscopic images were captured. The images demonstrate bilateral hydronephrosis, right greater than left. The distal ureters are poorly opacified with suggestion of external compression from the pelvic mass seen on CT abdomen pelvis with contrast on 04/22/17. Subsequent images demonstrate placement of bilateral ureteral stents which adequately drained the collecting systems on the final images. Correlated with the procedural report as needed. Impression: Bilateral hydronephrosis. Bilateral ureteral stent placement as described.
[2017-05-04 08:26] VITALS: BP 142/90
--- NOTE | 2017-05-04 09:58 | Hem/Onc Progress Note ---
Assessment and Plan Metastatic colon cancer. I will arrange for chemotherapy as outpatient. K-lucy and MSI testing also ordered. Discussed with Dr. Cordon. He will discuss with surgery about needing to take the drains out versus keeping them in. Subjective Date of service: 05/04/17 Interval history: Pathology shows primary to be gastrointestinal/colon In origin. Patient feels fair. Still has the right-sided drain and Fung catheter Objective - Constitutional Vitals: Last Vital Signs Temp 97.6 F 05/04/17 07:49 Pulse 75 05/04/17 07:49 Resp 20 05/04/17 07:49 BP 142/90 05/04/17 07:49 Pulse Ox 96 05/04/17 07:49 General appearance: no acute distress Performance status: 3-limited selfcare - Neck Neck: supple - Respiratory Respiratory: bilateral: diminished - Cardiovascular Rhythm: regular Extremities: No edema - Gastrointestinal General gastrointestinal: Present: distended
[2017-05-04] MEDS: NORVASC PO SCH (10:02)
[2017-05-04] MEDS: HEPARIN SUB-Q SCH (10:03)
[2017-05-04] MEDS: PROTONIX PO SCH (10:03)
--- NOTE | 2017-05-04 10:57 | Discharge Summary ---
Providers - Providers Date of Admission: 04/22/17 22:03 Date of discharge: 05/04/17 Attending physician: NICK WESLEY 04/23/17 01:36 Consult to Dietitian/Nutrition [CONS] Routine Physician Instructions: Reason For Exam: Reason for Consult: Poor oral intake Consult to Physician [CONS] Routine Consulting Provider: XENIA PARKER Reason For Exam: Peritoneal carcinomatosis Place consult to:: Oncology Notified:: office Phone number called:: [phone] Was contact made?: Yes If yes, spoke with:: yann Time called:: 11:38 Comment:: was put on hold for 10min. called back 04/23/17 01:37 Consult to Physician [CONS] Routine Consulting Provider: ANAHI DOYLE Reason For Exam: GI malignancy Place consult to:: [facility] Notified:: office Phone number called:: Was contact made?: Yes If yes, spoke with:: Time called:: 11:50 04/23/17 10:40 Consult to Interventional Radiology [CONS] Urgent Consulting Provider: GUCCI FIGUEREDO Reason For Exam: Peritonieal pracentsesis for cytology Notified:: no 04/23/17 19:12 Consult to Physician [CONS] Routine Consulting Provider: NUNO MORA Reason For Exam: right hydronephrosis Place consult to:: Geraldo Notified:: yes Phone number called:: [phone] Was contact made?: No If yes, spoke with:: Rose Marie Time called:: 09:55 04/27/17 14:26 Consult to Physician [CONS] Routine Consulting Provider: OCTAVIO MCKEON Reason For Exam: colon obstruction Place consult to:: dr. mckeon Notified:: office Phone number called:: Was contact made?: Yes If yes, spoke with:: shantanu Time called:: 11:41 04/28/17 12:30 Consult to Wound/ET Nurse [CONS] Routine Reason For Exam: Please see for left colon ostomy marking Primary care physician: [employer] Hospitalization Condition: Poor Hospital course: Patient is a 62-year-old man who presented with abdominal pain and was found to have near obstructing mass near sigmoid colon unable to complete a colonoscopy 04/22/17 CT abd/pelvis w/ contrast Findings are highly suspicious for peritoneal carcinomatosis. Possible source of malignancy could be gastrointestinal. There is a large amount of ascites. There is no mechanical bowel obstruction. Liver and spleen lesions could also be metastatic in nature. There hydronephrosis of the right kidney. This could be due to distal ureteral stricture caused by extrinsic compression from pelvic mass. 04/23/17 Ultrasound guided Paracentesis removed a total of 1.5 Liters of fluid and 120cc was sent for lab evaluation 04/24/17 EGD showed gastritis, esophagitis and possible gastroparesis /Adenocarcinoma of the colon with metastatic disease / Carcinomatosis with malignant ascites Adenocarcinomatosis, port to be placed for possible chemo. /Constipation due to Cancer with Colon stricture /Colon Cancer d/w Dr. Callahan, will need biopsy during surgery /partial colon obstruction due to obstructing Colon Cancer Diverting colostomy /Bilateral hydronephrosis, Cystoscopy 05/03/17 s/p bilateral ureter stents placed by Dr. Monroe, remove verma / DVT prophylaxis start sq heparin Patient declined hospice and dnr at this time. He wants chemotherapy, which will only be palliative per Dr. Callahan poor prognosis d/w Drs. Callahan, Alysha, and Fer ok to discharge with Abd AMANDA drain, remove verma Disposition: DC-01 TO HOME OR SELFCARE Time spent for discharge: 40 minutes Core Measure Documentation - Palliative Care Palliative Care/ Comfort Measures: Not Applicable - Core Measures Any of the following diagnoses?: none - VTE Discharge Requirements Deep Vein Thrombosis/Pulmonary Embolism Present on Admission: No Has pt received <5 days of overlap therapy or INR<2.0: No Anticoagulant overlap therapy prescribed at discharge: No Contraindication No Overlap Therapy order at DC: Not Indicated Exam - Physical Exam Narrative exam: GEN: WDWN, NAD, AWAKE, ALERT, ORIENTATED 3 HEENT: NCAT, EOMI, PERRL, OP Clear NECK: supple, no adenopathy, no thyromegaly, no JVD CVS/HEART: RRR, NORMAL S1S2, pulses present bilaterally CHEST/LUNGS: CTA B, Symmetrical chest expansion, good air entry bilaterally GI/Abdomen: soft, NT, good bowel sounds, no guarding or rebound /Bladder: no suprapubic tenderness, no CVA or paraspinal tenderness EXT/Skin: no c/c/e, no obvious rash MSK: FROM x 4 Neuro: CN 2-12 grossly intact, no new focal deficits Psych: calm - Constitutional Vitals: Temp Pulse Resp BP Pulse Ox 97.6 F 75 20 142/90 96 05/04/17 07:49 05/04/17 07:49 05/04/17 07:49 05/04/17 07:49 05/04/17 07:49 Plan Activity: other (no strenous activity until cleared by pcp) Diet: clear liquids Follow up with: PRIMARY CARE, [Primary Care Provider] - 3-5 Days Prescriptions: amLODIPine [Norvasc] 5 mg PO QDAY #30 tablet HYDROmorphone [Dilaudid] 1 tab PO Q4HR PRN #20 tablet PRN Reason: Pain , Severe (7-10) Ondansetron [Zofran Odt] 4 mg PO Q4H PRN #30 tab.rapdis PRN Reason: Nausea Pantoprazole [Protonix TAB] 40 mg PO QDAY #30 tablet
== END 2017-05-04 15:48 | disposition hospice, home (50) | DRG 669 ==
LOC: ED 11:56 → 3A 22:03
PROVIDERS: ADMIT Internal Medicine; ATTEND Internal Medicine
PROC: 0W9G3ZZ Drainage of Peritoneal Cavity, Percutaneous Approach (ICD-10-PCS; principal; 2017-04-23)
PROC: 3E0234Z Introduction of Serum, Toxoid and Vaccine into Muscle, Percutaneous Approach (ICD-10-PCS; 2017-04-23)
PROC: 0DB68ZX Excision of Stomach, Via Natural or Artificial Opening Endoscopic, Diagnostic (ICD-10-PCS; 2017-04-24)
PROC: 0DJD8ZZ Inspection of Lower Intestinal Tract, Via Natural or Artificial Opening Endoscopic (ICD-10-PCS; 2017-04-27)
PROC: 0JH60WZ Insertion of Totally Implantable Vascular Access Device into Chest Subcutaneous Tissue and Fascia, Open Approach (ICD-10-PCS; 2017-04-29)
PROC: 02HV33Z Insertion of Infusion Device into Superior Vena Cava, Percutaneous Approach (ICD-10-PCS; 2017-04-29)
PROC: B5181ZA Fluoroscopy of Superior Vena Cava using Low Osmolar Contrast, Guidance (ICD-10-PCS; 2017-04-29)
PROC: 0W9G40Z Drainage of Peritoneal Cavity with Drainage Device, Percutaneous Endoscopic Approach (ICD-10-PCS; 2017-04-29)
PROC: 0DBW4ZX Excision of Peritoneum, Percutaneous Endoscopic Approach, Diagnostic (ICD-10-PCS; 2017-04-29)
PROC: 0T5B8ZZ Destruction of Bladder, Via Natural or Artificial Opening Endoscopic (ICD-10-PCS; 2017-05-03)
PROC: 0TBB8ZX Excision of Bladder, Via Natural or Artificial Opening Endoscopic, Diagnostic (ICD-10-PCS; 2017-05-03)
PROC: BT141ZZ Fluoroscopy of Kidneys, Ureters and Bladder using Low Osmolar Contrast (ICD-10-PCS; 2017-05-03)
PROC: 0T788DZ Dilation of Bilateral Ureters with Intraluminal Device, Via Natural or Artificial Opening Endoscopic (ICD-10-PCS; 2017-05-03)
DX: N13.1 Hydronephrosis with ureteral stricture, not elsewhere classified (principal); C18.9 Malignant neoplasm of colon, unspecified; C78.6 Secondary malignant neoplasm of retroperitoneum and peritoneum; K56.600 Partial intestinal obstruction, unspecified as to cause; R18.0 Malignant ascites; K22.10 Ulcer of esophagus without bleeding; F17.210 Nicotine dependence, cigarettes, uncomplicated; K21.9 Gastro-esophageal reflux disease without esophagitis; K31.84 Gastroparesis; Z51.5 Encounter for palliative care; I10 Essential (primary) hypertension; K29.70 Gastritis, unspecified, without bleeding; Z80.9 Family history of malignant neoplasm, unspecified; Z23 Encounter for immunization
CPT/HCPCS: 36415; 49083; 71045; 74177; 74420; 77001; 80048; 80053; 81001; 82106; 82150; 82378; 83690; 83735; 84153; 84702; 85025; 85027; 85610; 85730; 86301; 88112; 88305; 88309; 88341; 88342; 90686; 96374; 96375; 99406; A4217; C1726; C1758; C1769; C1788; C2617; C9113; J0330; J0360; J0690; J1100; J1170; J1644; J1650; J1885; J2001; J2250; J2370; J2405; J2704; J3010; J7030; J7050; Q9967